=== PATIENT | female | born 1935 | race Caucasian/White ===

== ENCOUNTER 2018-09-10 10:56 | Inpatient (IN) | payer MEDICARE ==
[2018-09-10] MEDS ORDERED: Morphine 2 MG/ML Syringe IVPUSH ONE (11:02)
--- NOTE | 2018-09-10 11:24 | EDM.PDOC ---
ED HPI GENERAL MEDICAL PROBLEM - General Chief Complaint: General Stated Complaint: PAIN IN SHOULDER AND LEG WEAKNESS Time Seen by Provider: 09/10/18 10:59 Source of Information: Reports: Patient History Limitations: Reports: Other (Poor historian) - History of Present Illness INITIAL COMMENTS - FREE TEXT/NARRATIVE: HISTORY AND PHYSICAL: History of present illness: Patient is an 83-year-old female who presents to the emergency room today by ambulance with concerns of generalized weakness and right shoulder pain. Patient states that one week ago she had fallen and hit her head in [place]. She states she was hospitalized and sutured up and had a "brain bleed ". She is unsure of what was done for her treatment in the hospital stay. She has not had any falls since that visit. She states she does live at home currently but soon is going to be going to assisted living. She states she is able to somewhat walk. She states that she feels as if she is "weak" but is still able to move her legs without difficulty. Furthermore, she states that since her fall a week ago she has had severe right arm pain. She states that while in [place] they did imaging of it and states it was "not broken." Patient states that her legs feel "weak" but she is not able to quantify or explain this any further. She denies any injuries to her legs. Patient states she has been eating and drinking appropriately. Patient denies chest pain, shortness of breath, difficulties breathing, cough, nasal congestion, sinus pain, diarrhea, constipation, abdominal pain, or any other GI, , respiratory, or cardiovascular symptoms. She states she does have a history of chronic urinary tract infection that she is on chronic antibiotics for. Currently is taking Bactrim DS for UTI. Patient also has a history of hypothyroid, and hypertension. Review of systems: As per history of present illness and below otherwise all systems reviewed and negative. Past medical history: As per history of present illness and as reviewed below otherwise noncontributory. Surgical history: As per history of present illness and as reviewed below otherwise noncontributory. Social history: See social history for further information Family history: As per history of present illness and as reviewed below otherwise noncontributory. Physical exam: General: Patient is alert, oriented, and in no acute distress. She is lying comfortably on exam table. HEENT: There is a widespread bruise on the left side of face that is in various stages of healing. Normocephalic, pupils equal and reactive bilaterally, negative for conjunctival pallor or scleral icterus, mucous membranes moist, TMs normal bilaterally, throat clear, neck supple, nontender, trachea midline. No drooling or trismus noted. No meningeal signs. No hot potato voice noted. Lungs: Clear to auscultation, breath sounds equal bilaterally, chest nontender. Heart: S1S2, regular rate and rhythm without overt murmur Abdomen: Soft, nondistended, nontender. Negative for masses or hepatosplenomegaly. Negative for costovertebral tenderness. Pelvis: Stable nontender. Genitourinary: Deferred. Rectal: Deferred. Skin: See HEENT. Intact, warm, dry. No lesions or rashes noted. Extremities: She does have some bruising on her fingers in various stages. She does have her right arm and a homemade sling. She does have moderate pain to any movement of the right arm. Exam of the arm was limited due to pain. However , radial pulse was grossly intact. Patient did have full strength in hands/ extremities bilaterally. Negative for cords or calf pain. Neurovascular unremarkable. Neuro: Awake, alert, oriented. Cranial nerves II through XII unremarkable. Cerebellum unremarkable. Motor and sensory unremarkable throughout. Exam nonfocal. Notes: She does not meet criteria for stoke code. She does not have any unilateral weakness, slurred speech or deficits noted. Patient's white blood cell count is elevated at 17.51 with slight elevation in neutrophils. Blood cultures 2 were obtained. Patient's BUN is 19 and creatinine 1.4 which are slightly elevated today. Head CT shows no acute intracranial findings and mild generalized atrophy and small vessel ischemic changes. Chest x-ray shows no acute cardiopulmonary process. The daughter who is also her survey statistician is at the bedside and is concerned of the repeat labs that are being done. She states that multiple labs were done 2 weeks ago while in [facility] ([facility] and is frustrated that we are "not treating her urinary tract infection". Patient is currently on Bactrim for her UTI. She is adamant that the patient have imagining of her lumbar spine. She states that no imaging was done on the date of her fall 2 weeks ago. She believes that her weakness is related to lumbar injury as she does have chronic pain and lumbar fusion. [facility] was contacted, their medical records state that a head CT was done but no spine imaging. We'll obtain a lumbar spine x-ray. Shoulder shows no acute abnormalities, dislocation or fractures. There is mild generalized osteopenia and degenerative changes noted the humeral head is mildly high riding. She does states she has had multiple bilateral shoulder surgeries. Lumbar imaging shows extensive postop changes within the lumbar spine without acute osseous abnormality. Also shows notable osteopenic with mild motion being noted. On chest x-ray the ability to get a lateral view was inhibited due to patient's willingness to move arms. Due to patient's elevated white blood cell count, lack of physical ambulation, and the inability to get a lateral view will assess for admission. Oxygen has been applied due to O2 sats being 89-90% on RA. Dr. Manuel was consulted and will come evaluate the patient. Nemo Oro NP is here to evaluate the patient. Levaquin ordered at this time. She will admit for Observation. Patient and family members are aware and agreeable. Vital signs remain stable. Diagnostics: CBC, CMP, influenza, troponin, TSH, UA w/ culture, chest x-ray, head CT, shoulder x-ray, EKG, blood cultures x 2, Lumbar Spine Therapeutics: Morphine, Normal Saline, Levaquin IV Impression: Hypoxia Leukocytosis Decreased ADL Elevated BUN/Creatinine Plan: Observation admission Definitive disposition and diagnosis as appropriate pending reevaluation and review of above. right shoulder Pain Score (Numeric/FACES): 10 - Related Data Allergies Allergy/AdvReac Type Severity Reaction Status Date / Time ibuprofen [From Motrin] Allergy Cannot Verified 09/10/18 11:03 Remember NSAIDS (Non-Steroidal Allergy Cannot Verified 09/10/18 11:03 Anti-Inflamma Remember Home Meds: Home Meds Acetaminophen with Codeine [Acetaminophen-Cod #4] 1 tab PO Q4H PRN 09/10/18 [ History] Cyclobenzaprine [Flexeril] 1 tab PO TID PRN 09/10/18 [History] Disopyramide Phosphate [Norpace] 150 mg PO BID 09/10/18 [History] Gabapentin [Neurontin] 1 tab PO TID 09/10/18 [History] Levothyroxine [Levothroid] 137 mcg PO DAILY 09/10/18 [History] Sulfamethoxazole/Trimethoprim [Bactrim Ds Tablet] 1 tab PO BID 09/10/18 [History ] hydroCHLOROthiazide [Hydrochlorothiazide] 25 mg PO DAILY 09/10/18 [History] traZODone HCl [Trazodone HCl] 100 mg PO BEDTIME 09/10/18 [History] ED ROS GENERAL - Review of Systems Review Of Systems: ROS reveals no pertinent complaints other than HPI. ED EXAM, GENERAL - Physical Exam Exam: See Below (See dictation) Course - Vital Signs Last Recorded V/S: Last Vital Signs Temp 101.3 F H 09/10/18 13:06 Pulse 87 09/10/18 12:15 Resp 18 09/10/18 12:15 BP 166/64 H 09/10/18 12:15 Pulse Ox 93 L 09/10/18 12:15 - Orders/Labs/Meds Orders: Active Orders 24 hr Category Date Time Status Admission Status [Patient Status] [ADT] Stat ADT 09/10/18 13:59 Ordered EKG Documentation Completion [RC] AM Care 09/10/18 11:00 Active Chest 2V [CR] Stat Exams 09/10/18 13:07 Ordered CULTURE BLOOD [BC] Stat Lab 09/10/18 11:36 Ordered CULTURE BLOOD [BC] Stat Lab 09/10/18 11:36 Ordered Levofloxacin/Dextrose 5%-Water [Levaquin in D5W 750 MG/ Med 09/10/18 13:34 Active 150 ML] 750 mg Premix Bag 1 bag IV ONETIME Sodium Chloride 0.9% [Normal Saline] 1,000 ml Med 09/10/18 11:15 Active IV ASDIRECTED Blood Culture x2 Reflex Set [OM.PC] Stat Oth 09/10/18 11:36 Ordered Medication Orders Sodium Chloride (Normal Saline) 1,000 mls @ 100 mls/hr IV ASDIRECTED ALCIDES Last Admin: 09/10/18 11:30 Dose: 100 mls/hr Levofloxacin/Dextrose 750 mg/ (Premix) 150 mls @ 100 mls/hr IV ONETIME ONE Stop: 09/10/18 15:03 Labs: Laboratory Tests 09/10/18 09/10/18 09/10/18 Range/Units 11:14 11:14 11:14 WBC 17.51 H (4.0-11.0) K/uL RBC 4.59 (4.30-5.90) M/uL Hgb 14.1 (12.0-16.0) g/dL Hct 40.3 (36.0-46.0) % MCV 87.8 (80.0-98.0) fL MCH 30.7 (27.0-32.0) pg MCHC 35.0 (31.0-37.0) g/dL RDW Std Deviation 44.8 (28.0-62.0) fl RDW Coeff of [place] 14 (11.0-15.0) % Plt Count 282 (150-400) K/uL MPV 9.50 (7.40-12.00) fL Neut % (Auto) 83.3 H (48.0-80.0) % Lymph % (Auto) 7.0 L (16.0-40.0) % [place] % (Auto) 9.2 (0.0-15.0) % Eos % (Auto) 0.3 (0.0-7.0) % Baso % (Auto) 0.2 (0.0-1.5) % Neut # (Auto) 14.6 H (1.4-5.7) K/uL Lymph # (Auto) 1.2 (0.6-2.4) K/uL [place] # (Auto) 1.6 H (0.0-0.8) K/uL Eos # (Auto) 0.1 (0.0-0.7) K/uL Baso # (Auto) 0.0 (0.0-0.1) K/uL Nucleated RBC % 0.0 /100WBC Nucleated RBCs # 0 K/uL Sodium 133 L (136-145) mmol/L Potassium 4.0 (3.5-5.1) mmol/L Chloride 98 (98-107) mmol/L Carbon Dioxide 26.1 (21.0-32.0) mmol/L BUN 19 H (7.0-18.0) mg/dL Creatinine 1.4 H (0.6-1.0) mg/dL Est Cr Clr Drug Dosing 27.21 mL/min Estimated GFR (MDRD) 36.1 ml/min Glucose 97 (74-106) mg/dL Calcium 9.7 (8.5-10.1) mg/dL Total Bilirubin 0.4 (0.2-1.0) mg/dL AST 26 (15-37) IU/L ALT 31 (14-63) IU/L Alkaline Phosphatase 99 (46-116) U/L Troponin I < 0.050 (0.000-0.056) ng/mL Total Protein 7.4 (6.4-8.2) g/dL Albumin 3.2 L (3.4-5.0) g/dL Globulin 4.2 H (2.6-4.0) g/dL Albumin/Globulin Ratio 0.8 L (0.9-1.6) TSH 3rd Generation 2.06 (0.36-3.74) uIU/mL Urine Color Urine Appearance Urine pH (5.0-8.0) Ur Specific [place] (1.001-1.035) Urine Protein (NEGATIVE) mg/dL Urine Glucose (UA) (NEGATIVE) mg/dL Urine Ketones (NEGATIVE) mg/dL Urine Occult Blood (NEGATIVE) Urine Nitrite (NEGATIVE) Urine Bilirubin (NEGATIVE) Urine Urobilinogen (<2.0) EU/dL Ur Leukocyte Esterase (NEGATIVE) 09/10/18 Range/Units 12:45 WBC (4.0-11.0) K/uL RBC (4.30-5.90) M/uL Hgb (12.0-16.0) g/dL Hct (36.0-46.0) % MCV (80.0-98.0) fL MCH (27.0-32.0) pg MCHC (31.0-37.0) g/dL RDW Std Deviation (28.0-62.0) fl RDW Coeff of [place] (11.0-15.0) % Plt Count (150-400) K/uL MPV (7.40-12.00) fL Neut % (Auto) (48.0-80.0) % Lymph % (Auto) (16.0-40.0) % [place] % (Auto) (0.0-15.0) % Eos % (Auto) (0.0-7.0) % Baso % (Auto) (0.0-1.5) % Neut # (Auto) (1.4-5.7) K/uL Lymph # (Auto) (0.6-2.4) K/uL [place] # (Auto) (0.0-0.8) K/uL Eos # (Auto) (0.0-0.7) K/uL Baso # (Auto) (0.0-0.1) K/uL Nucleated RBC % /100WBC Nucleated RBCs # K/uL Sodium (136-145) mmol/L Potassium (3.5-5.1) mmol/L Chloride (98-107) mmol/L Carbon Dioxide (21.0-32.0) mmol/L BUN (7.0-18.0) mg/dL Creatinine (0.6-1.0) mg/dL Est Cr Clr Drug Dosing mL/min Estimated GFR (MDRD) ml/min Glucose (74-106) mg/dL Calcium (8.5-10.1) mg/dL Total Bilirubin (0.2-1.0) mg/dL AST (15-37) IU/L ALT (14-63) IU/L Alkaline Phosphatase (46-116) U/L Troponin I (0.000-0.056) ng/mL Total Protein (6.4-8.2) g/dL Albumin (3.4-5.0) g/dL Globulin (2.6-4.0) g/dL Albumin/Globulin Ratio (0.9-1.6) TSH 3rd Generation (0.36-3.74) uIU/mL Urine Color YELLOW Urine Appearance CLEAR Urine pH 6.0 (5.0-8.0) Ur Specific [place] 1.025 (1.001-1.035) Urine Protein NEGATIVE (NEGATIVE) mg/dL Urine Glucose (UA) NEGATIVE (NEGATIVE) mg/dL Urine Ketones TRACE H (NEGATIVE) mg/dL Urine Occult Blood NEGATIVE (NEGATIVE) Urine Nitrite NEGATIVE (NEGATIVE) Urine Bilirubin NEGATIVE (NEGATIVE) Urine Urobilinogen 0.2 (<2.0) EU/dL Ur Leukocyte Esterase NEGATIVE (NEGATIVE) Meds: Medications Generic Name Dose Route Start Last Admin Trade Name Freq PRN Reason Stop Dose Admin Sodium Chloride 1,000 mls @ 100 mls/hr 09/10/18 11:15 09/10/18 11:30 Normal Saline IV 100 mls/hr ASDIRECTED ALCIDES Administration Levofloxacin/Dextrose 750 mg/ 150 mls @ 100 mls/hr 09/10/18 13:34 Premix IV 09/10/18 15:03 ONETIME ONE Discontinued Medications Generic Name Dose Route Start Last Admin Trade Name Vanessa PRN Reason Stop Dose Admin Acetaminophen 650 mg 09/10/18 12:48 09/10/18 13:06 Tylenol PO 09/10/18 12:49 650 mg NOW ONE Administration Morphine Sulfate 2 mg 09/10/18 11:02 09/10/18 11:30 Morphine IVPUSH 09/10/18 11:03 2 mg ONETIME ONE Administration Departure - Departure Time of Disposition: 14:00 Disposition: Refer to Observation Clinical Impression: Hypoxia, Leukocytosis, unspecified, Decreased activities of daily living (ADL) - Discharge Information Referrals: PCP,Unknown [Primary Care Provider] - Forms: ED Department Discharge - My Orders Last 24 Hours: My Active Orders 09/10/18 11:00 EKG Documentation Completion [RC] AM 09/10/18 11:15 Sodium Chloride 0.9% [Normal Saline] 1,000 ml IV ASDIRECTED 09/10/18 11:36 CULTURE BLOOD [BC] Stat CULTURE BLOOD [BC] Stat Blood Culture x2 Reflex Set [OM.PC] Stat 09/10/18 13:07 Chest 2V [CR] Stat 09/10/18 13:34 Levofloxacin/Dextrose 5%-Water [Levaquin in D5W 750 MG/150 ML] 750 mg Premix Bag 1 bag IV ONETIME 09/10/18 13:59 Admission Status [Patient Status] [ADT] Stat - Assessment/Plan Last 24 Hours: My Active Orders 09/10/18 11:00 EKG Documentation Completion [RC] AM 09/10/18 11:15 Sodium Chloride 0.9% [Normal Saline] 1,000 ml IV ASDIRECTED 09/10/18 11:36 CULTURE BLOOD [BC] Stat CULTURE BLOOD [BC] Stat Blood Culture x2 Reflex Set [OM.PC] Stat 09/10/18 13:07 Chest 2V [CR] Stat 09/10/18 13:34 Levofloxacin/Dextrose 5%-Water [Levaquin in D5W 750 MG/150 ML] 750 mg Premix Bag 1 bag IV ONETIME 09/10/18 13:59 Admission Status [Patient Status] [ADT] Stat
[2018-09-10] MEDS: Sodium Chloride 0.9% 1,000 ML IV SCH ×2 (11:30→20:47)
[2018-09-10 11:52] LABS: CHLORIDE,CL 98 mmol/L (98-107); SODIUM,NA 133 mmol/L (136-145)
--- NOTE | 2018-09-10 12:12 | CT ---
EXAMINATION: Non contrast CT head. Coronal and sagittal reformats. HISTORY: Fall FINDINGS: No evidence of intra or extra axial hemorrhage, mass, midline shift, hydrocephalus or edema. Periventricular and subcortical white matter hypodensities are noted. No hypoattenuation changes in the major vascular territories to suggest acute infarct. No abnormal intracranial calcifications are detected. No evidence of substantial vascular calcifications. There is opacification of a few ethmoid air cells. Overt and globes are symmetric. Pituitary fossa appears unremarkable. Calvarium is intact. No evidence of skull fracture. IMPRESSION: 1. No acute intracranial findings. 2. Mild generalized atrophy and small vessel ischemic changes.
--- NOTE | 2018-09-10 12:23 | CR ---
EXAMINATION: Portable chest radiograph. HISTORY: Shortness of breath. FINDINGS: The trachea is midline. The heart is borderline in size. The cardiomediastinal silhouette is within normal limits. No pulmonary infiltrates, effusions or pneumothorax. Mild elevation of the right hemidiaphragm. Degenerative changes noted within the shoulders bilaterally, left greater than right. Generalized osteopenia. Bilateral fusion hardware noted within the cervical and thoracolumbar region. IMPRESSION: No acute cardiopulmonary process.
--- NOTE | 2018-09-10 12:26 | CR ---
EXAMINATION: Right shoulder HISTORY: Pain COMPARISON: None TECHNIQUE: 2 views FINDINGS/IMPRESSION: There is no acute osseous abnormality, dislocation, or fracture. Mild generalized osteopenia with subcortical sclerosis and degenerative changes noted within the right shoulder. Humeral head is mildly high riding suggesting a rotator cuff arthropathy.
[2018-09-10] MEDS ORDERED: Acetaminophen 325 MG Tab PO ONE (12:48)
--- NOTE | 2018-09-10 13:22 | CR ---
EXAMINATION: Lumbar spine HISTORY: Pain COMPARISON: None TECHNIQUE: AP and lateral views FINDINGS: There is mild motion artifact noted. Overall the osseous structures are notable osteopenic. An evaluation of the individual vertebral bodies is limited. Extensive posterior fusion hardware extending throughout the lumbar spine into the sacrum. No definite acute osseous abnormality. SI joints are symmetric. IMPRESSION: 1. Extensive postoperative changes throughout the lumbar spine without a definite acute osseous abnormality. 2. However the osseous structures are notably osteopenic and mild motion is noted.
[2018-09-10] MEDS ORDERED: Levofloxacin/Dextrose 5%-Water 750 MG in Premix Bag 1 BAG IV ONE (13:34)
--- NOTE | 2018-09-10 14:34 | PCM.HP ---
H&P History of Present Illness - General Date of Service: 09/10/18 Admit Problem/Dx: Admission Diagnosis/Problem Admission Diagnosis/Problem Hypoxia Source of Information: Patient History Limitations: Reports: No Limitations - History of Present Illness Initial Comments - Free Text/Narative: This 83 year old female with pmh of HTN and recent falls presented to the ED via EMS due to weakness and generalized malaise. Yael does little talk, her daughter helps with most of history and ROS. Her daughter reports she has been very weak since she was discharged home from a [facility] the beginning of the week after she fell and had a "brain bleed". She reports she had a thorough workup there regarding falls and possible syncope and they couldn 't find anything. She reports she had one day of therapy and then sent home. At home she has not been up much to ambulate, to the bathroom and back. Yael reports she just doesn't feel well. Fever was noted in the ED. She has been treated with Bactrim for recent UTI and is currently still taking it. She denies cough or chest pain. No headache or neck pain. Reports R shoulder pain after her fall, she reports this has hurt since her fall and the hospital report no fractures. She reports constipation and no bowel movement since she came home. She reports eating and drinking ok but her daughter reports she hasn' t been drinking well enough. Denies urinary symptoms, gets UTIs frequently. In the ED leukocytosis noted at 17,510, BUN 19, Cr 1.4. UA negative and influenza negative. CXR obtained and negative as well. She was reports at 89-90 % on arrival to the ED. Denies oxygen use at home. Should Xrays negative, but did show high riding humeral head, possible rotator cuff arthropathy. Head CT obtained and negative as well. She will be admitted observation for hypoxia, leukocytosis, dehydration and TED. Daughter reports she feels her mother is slightly confused as well, but this comes and goes recently. Will obtain records from [place] to evaluate work up there. right shoulder Pain Score (Numeric/FACES): 10 - Related Data Allergies/Adverse Reactions: Allergies Allergy/AdvReac Type Severity Reaction Status Date / Time ibuprofen [From Motrin] Allergy Cannot Verified 09/10/18 11:03 Remember NSAIDS (Non-Steroidal Allergy Cannot Verified 09/10/18 11:03 Anti-Inflamma Remember Home Medications: Home Meds Acetaminophen with Codeine [Acetaminophen-Cod #4] 1 tab PO Q4H PRN 09/10/18 [ History] Cyclobenzaprine [Flexeril] 1 tab PO TID PRN 09/10/18 [History] Disopyramide Phosphate [Norpace] 150 mg PO BID 09/10/18 [History] Gabapentin [Neurontin] 1 tab PO TID 09/10/18 [History] Levothyroxine [Levothroid] 137 mcg PO DAILY 09/10/18 [History] Sulfamethoxazole/Trimethoprim [Bactrim Ds Tablet] 1 tab PO BID 09/10/18 [History ] hydroCHLOROthiazide [Hydrochlorothiazide] 25 mg PO DAILY 09/10/18 [History] traZODone HCl [Trazodone HCl] 100 mg PO BEDTIME 09/10/18 [History] Past Medical History Cardiovascular History: Reports: Arrhythmia, Hypertension. Denies: Afib, Blood Clots/VTE/DVT Respiratory History: Reports: None. Denies: COPD Gastrointestinal History: Reports: None Genitourinary History: Reports: UTI, Recurrent Musculoskeletal History: Reports: Back Pain, Chronic, Fibromyalgia, Other (See Below) Other Musculoskeletal History: Weakness Neurological History: Reports: Other (See Below) Other Neuro History: head bleed 09/02/18 Endocrine/Metabolic History: Reports: Hypothyroidism Oncologic (Cancer) History: Reports: Other (See Below) Other Oncologic History: Kidney - Infectious Disease History Infectious Disease History: Reports: Chicken Pox, Measles, Mumps - Past Surgical History GI Surgical History: Reports: Appendectomy Female Surgical History: Reports: Hysterectomy Neurological Surgical History: Reports: Lumbar Spine, Thoracic Spine Musculoskeletal Surgical History: Reports: Knee Replacement Social & Family History - Tobacco Use Smoking Status *Q: Never Smoker - Recreational Drug Use Recreational Drug Use: No - Living Situation & Occupation Living situation: Reports: with Family Occupation: Retired H&P Review of Systems - Review of Systems: Review Of Systems: See Below General: Reports: Fever, Chills, Malaise, Weakness (generalized) HEENT: Reports: No Symptoms. Denies: Ear Pain, Headaches, Sore Throat, Visual Changes Pulmonary: Reports: No Symptoms. Denies: Shortness of Breath, Pleuritic Chest Pain, Cough, Sputum Cardiovascular: Reports: No Symptoms. Denies: Chest Pain, Edema, Lightheadedness, Syncope Gastrointestinal: Reports: Constipation. Denies: Abdominal Pain, Black Stool, Bloody Stool, Nausea, Vomiting Genitourinary: Reports: No Symptoms. Denies: Dysuria, Frequency, Incontinence, Retention Musculoskeletal: Reports: Back Pain (chronic, takes Hydrocodone) Skin: Reports: Bruising (L side of face and R hand). Denies: Rash, Erythema, Wound Psychiatric: Reports: No Symptoms Neurological: Reports: Confusion (per daughter, intermittently) Exam - Exam Exam: See Below - Vital Signs Vital Signs: Last Vital Signs Temp 101.3 F H 09/10/18 13:06 Pulse 87 09/10/18 12:15 Resp 18 09/10/18 12:15 BP 166/64 H 09/10/18 12:15 Pulse Ox 93 L 09/10/18 12:15 Weight: 68.039 kg - Exam Quality Assessment: Supplemental Oxygen General: Alert, Cooperative. No: Oriented (to self and location) HEENT: Conjunctiva Clear. No: Mucosa Moist & [place] (dry cracker lips) Neck: Supple, Trachea Midline Lungs: Clear to Auscultation, Normal Respiratory Effort. No: Decreased Breath Sounds, Crackles, Wheezing Cardiovascular: Regular Rate, Regular Rhythm, Normal S1, Normal S2. No: Tachycardia, Systolic Murmur GI/Abdominal Exam: Normal Bowel Sounds, Soft, Non-Tender, No Mass Back Exam: Normal Inspection, Full Range of Motion Extremities: No: Normal Range of Motion (will not allow movement of R shoulder due to pain. Tender to humeral head and near clavicle. Some swelling noted, no erythema or warm noted to this region.) Skin: Warm, Dry, Intact Neuro Extensive - Mental Status: Alert, Disorientation to Time Neuro Extensive - Motor, Sensory, Reflexes: CN II-XII Intact Psychiatric: Alert, Normal Affect, Normal Mood - Patient Data Lab Results Last 24 hrs: Laboratory Results - last 24 hr 09/10/18 09/10/18 09/10/18 Range/Units 11:14 11:14 11:14 WBC 17.51 H (4.0-11.0) K/uL RBC 4.59 (4.30-5.90) M/uL Hgb 14.1 (12.0-16.0) g/dL Hct 40.3 (36.0-46.0) % MCV 87.8 (80.0-98.0) fL MCH 30.7 (27.0-32.0) pg MCHC 35.0 (31.0-37.0) g/dL RDW Std Deviation 44.8 (28.0-62.0) fl RDW Coeff of [place] 14 (11.0-15.0) % Plt Count 282 (150-400) K/uL MPV 9.50 (7.40-12.00) fL Neut % (Auto) 83.3 H (48.0-80.0) % Lymph % (Auto) 7.0 L (16.0-40.0) % [place] % (Auto) 9.2 (0.0-15.0) % Eos % (Auto) 0.3 (0.0-7.0) % Baso % (Auto) 0.2 (0.0-1.5) % Neut # (Auto) 14.6 H (1.4-5.7) K/uL Lymph # (Auto) 1.2 (0.6-2.4) K/uL [place]le # (Auto) 1.6 H (0.0-0.8) K/uL Eos # (Auto) 0.1 (0.0-0.7) K/uL Baso # (Auto) 0.0 (0.0-0.1) K/uL Nucleated RBC % 0.0 /100WBC Nucleated RBCs # 0 K/uL Sodium 133 L (136-145) mmol/L Potassium 4.0 (3.5-5.1) mmol/L Chloride 98 (98-107) mmol/L Carbon Dioxide 26.1 (21.0-32.0) mmol/L BUN 19 H (7.0-18.0) mg/dL Creatinine 1.4 H (0.6-1.0) mg/dL Est Cr Clr Drug Dosing 27.21 mL/min Estimated GFR (MDRD) 36.1 ml/min Glucose 97 (74-106) mg/dL Calcium 9.7 (8.5-10.1) mg/dL Total Bilirubin 0.4 (0.2-1.0) mg/dL AST 26 (15-37) IU/L ALT 31 (14-63) IU/L Alkaline Phosphatase 99 (46-116) U/L Troponin I < 0.050 (0.000-0.056) ng/mL Total Protein 7.4 (6.4-8.2) g/dL Albumin 3.2 L (3.4-5.0) g/dL Globulin 4.2 H (2.6-4.0) g/dL Albumin/Globulin Ratio 0.8 L (0.9-1.6) TSH 3rd Generation 2.06 (0.36-3.74) uIU/mL Urine Color Urine Appearance Urine pH (5.0-8.0) Ur Specific [place] (1.001-1.035) Urine Protein (NEGATIVE) mg/dL Urine Glucose (UA) (NEGATIVE) mg/dL Urine Ketones (NEGATIVE) mg/dL Urine Occult Blood (NEGATIVE) Urine Nitrite (NEGATIVE) Urine Bilirubin (NEGATIVE) Urine Urobilinogen (<2.0) EU/dL Ur Leukocyte Esterase (NEGATIVE) 09/10/18 Range/Units 12:45 WBC (4.0-11.0) K/uL RBC (4.30-5.90) M/uL Hgb (12.0-16.0) g/dL Hct (36.0-46.0) % MCV (80.0-98.0) fL MCH (27.0-32.0) pg MCHC (31.0-37.0) g/dL RDW Std Deviation (28.0-62.0) fl RDW Coeff of [place] (11.0-15.0) % Plt Count (150-400) K/uL MPV (7.40-12.00) fL Neut % (Auto) (48.0-80.0) % Lymph % (Auto) (16.0-40.0) % Boyle % (Auto) (0.0-15.0) % Eos % (Auto) (0.0-7.0) % Baso % (Auto) (0.0-1.5) % Neut # (Auto) (1.4-5.7) K/uL Lymph # (Auto) (0.6-2.4) K/uL Boyle # (Auto) (0.0-0.8) K/uL Eos # (Auto) (0.0-0.7) K/uL Baso # (Auto) (0.0-0.1) K/uL Nucleated RBC % /100WBC Nucleated RBCs # K/uL Sodium (136-145) mmol/L Potassium (3.5-5.1) mmol/L Chloride (98-107) mmol/L Carbon Dioxide (21.0-32.0) mmol/L BUN (7.0-18.0) mg/dL Creatinine (0.6-1.0) mg/dL Est Cr Clr Drug Dosing mL/min Estimated GFR (MDRD) ml/min Glucose (74-106) mg/dL Calcium (8.5-10.1) mg/dL Total Bilirubin (0.2-1.0) mg/dL AST (15-37) IU/L ALT (14-63) IU/L Alkaline Phosphatase (46-116) U/L Troponin I (0.000-0.056) ng/mL Total Protein (6.4-8.2) g/dL Albumin (3.4-5.0) g/dL Globulin (2.6-4.0) g/dL Albumin/Globulin Ratio (0.9-1.6) TSH 3rd Generation (0.36-3.74) uIU/mL Urine Color YELLOW Urine Appearance CLEAR Urine pH 6.0 (5.0-8.0) Ur Specific [place] 1.025 (1.001-1.035) Urine Protein NEGATIVE (NEGATIVE) mg/dL Urine Glucose (UA) NEGATIVE (NEGATIVE) mg/dL Urine Ketones TRACE H (NEGATIVE) mg/dL Urine Occult Blood NEGATIVE (NEGATIVE) Urine Nitrite NEGATIVE (NEGATIVE) Urine Bilirubin NEGATIVE (NEGATIVE) Urine Urobilinogen 0.2 (<2.0) EU/dL Ur Leukocyte Esterase NEGATIVE (NEGATIVE) Result Diagrams: 09/10/18 11:14 09/10/18 11:14 Genaro Results Last 24 hrs: Microbiology 09/10/18 13:38 Anaerobic Blood Culture - Final Blood - Venous 09/10/18 11:30 Influenza Type A Antigen Screen - Final Nasopharyngeal Swab NEGATIVE INFLUENZA A VIRUS AG Influenza Type B Antigen Screen - Final NEGATIVE INFLUENZA B VIRUS AG - Problem List (1) Leukocytosis, unspecified SNOMED Code(s): 327314502, 750508040 ICD Code: D72.829 - ELEVATED WHITE BLOOD CELL COUNT, UNSPECIFIED Status: Acute Current Visit: Yes (2) Dehydration SNOMED Code(s): 55802523 ICD Code: E86.0 - DEHYDRATION Status: Acute Current Visit: Yes (3) TED (acute kidney injury) SNOMED Code(s): 24562923 ICD Code: N17.9 - ACUTE KIDNEY FAILURE, UNSPECIFIED Status: Acute Current Visit: Yes (4) Physical deconditioning SNOMED Code(s): 30407914760619 ICD Code: R53.81 - OTHER MALAISE Status: Acute Current Visit: Yes (5) Shoulder pain SNOMED Code(s): 56101336 ICD Code: M25.519 - PAIN IN UNSPECIFIED SHOULDER Status: Acute Current Visit: Yes Qualifiers: Chronicity: acute Laterality: right Qualified Code(s): M25.511 - Pain in right shoulder (6) Decreased activities of daily living (ADL) SNOMED Code(s): 539967844 ICD Code: R68.89 - OTHER GENERAL SYMPTOMS AND SIGNS Status: Acute Current Visit: Yes (7) Hypoxia SNOMED Code(s): 292954629 ICD Code: R09.02 - HYPOXEMIA Status: Acute Current Visit: Yes (8) HTN (hypertension) SNOMED Code(s): 11990087 ICD Code: I10 - ESSENTIAL (PRIMARY) HYPERTENSION Status: Chronic Current Visit: Yes Qualifiers: Hypertension type: essential hypertension Qualified Code(s): I10 - Essential (primary) hypertension Problem List Initiated/Reviewed/Updated: Yes Orders Last 24hrs: Active Orders 24 hr Category Date Time Status Admission Status [Patient Status] [ADT] Stat ADT 09/10/18 13:59 Active EKG Documentation Completion [RC] AM Care 09/10/18 11:00 Active Chest 2V [CR] Stat Exams 09/10/18 13:07 Ordered CULTURE BLOOD [BC] Stat Lab 09/10/18 11:36 Ordered CULTURE BLOOD [BC] Stat Lab 09/10/18 13:38 Results Levofloxacin/Dextrose 5%-Water [Levaquin in D5W 750 MG/ Med 09/10/18 13:34 Active 150 ML] 750 mg Premix Bag 1 bag IV ONETIME Sodium Chloride 0.9% [Normal Saline] 1,000 ml Med 09/10/18 11:15 Active IV ASDIRECTED Blood Culture x2 Reflex Set [OM.PC] Stat Oth 09/10/18 11:36 Ordered Medication Orders Sodium Chloride (Normal Saline) 1,000 mls @ 100 mls/hr IV ASDIRECTED [facility] Last Admin: 09/10/18 11:30 Dose: 100 mls/hr Levofloxacin/Dextrose 750 mg/ (Premix) 150 mls @ 100 mls/hr IV ONETIME ONE Stop: 09/10/18 15:03 Assessment/Plan Comment:: This 83 year old female admitted with hypoxia, leukocytosis and dehydration 1. Leukocytosis: May be related to dehydration. But will stop Bactrim and cover with Levaquin for possible PNA due to hypoxia, though CXR negative. Will monitor. 2. Dehydration: Will gentle give fluids and monitor renal function. has some TED , will adjust Gabapentin due to this and monitor. 3. Physical deconditioning: consult PT/OT to evaluate and treat. OT to evaluate ADLs as well as shoulder pain. No fractures noted on Xray. Splint to R arm for comfort. 4. HTN: Stable. Continue home meds. VTE prophylaxis: SCDS for now due to recent brain bleed. Will have nursing obtain records from [facility]. Dispo: 2-3 days.
[2018-09-10] MEDS ORDERED: Acetaminophen 325 MG Tab PO PRN (15:51)
[2018-09-10] MEDS ORDERED: Ondansetron 4 MG/2 ML SDV IVPUSH PRN (15:51)
[2018-09-10] MEDS ORDERED: Bisacodyl 10 MG Supp RECTAL PRN (17:31)
[2018-09-10] MEDS ORDERED: DISOPYRAMIDE PHOSPHATE 150 MG PO SCH (21:00)
[2018-09-10] MEDS: traZODone 50 MG Tab PO SCH (22:15)
[2018-09-11 05:33] LABS: CHLORIDE,CL 97 mmol/L (98-107); SODIUM,NA 131 mmol/L (136-145)
[2018-09-11] MEDS: Levothyroxine 112 MCG Tab PO SCH (06:48)
[2018-09-11] MEDS: Levothyroxine 25 MCG Tab PO SCH (06:49)
[2018-09-11] MEDS: Sodium Chloride 0.9% 1,000 ML IV SCH ×2 (06:50→19:05)
--- NOTE | 2018-09-11 08:24 | PCM.PN ---
- General Info Date of Service: 09/11/18 Admission Dx/Problem (Free Text): Admission Diagnosis/Problem Admission Diagnosis/Problem Hypoxia Subjective Update: Feeling a little better this morning, shoulder still hurts. No chest pain or SOB. More alert this morning. Functional Status: Reports: Pain Controlled, Tolerating Diet, Ambulating, Urinating - Review of Systems General: Reports: Weakness (generalized) HEENT: Reports: No Symptoms. Denies: Headaches, Sore Throat Pulmonary: Reports: No Symptoms Cardiovascular: Reports: No Symptoms. Denies: Chest Pain, Edema Gastrointestinal: Reports: No Symptoms. Denies: Abdominal Pain, Nausea, Vomiting Genitourinary: Reports: No Symptoms Musculoskeletal: Reports: No Symptoms Skin: Reports: No Symptoms Neurological: Reports: No Symptoms Psychiatric: Reports: No Symptoms - Patient Data Vitals - Most Recent: Last Vital Signs Temp 98.2 F 09/11/18 08:00 Pulse 88 09/11/18 08:00 Resp 16 09/11/18 08:00 BP 147/75 H 09/11/18 08:00 Pulse Ox 90 L 09/11/18 08:00 Weight - Most Recent: 68.039 kg I&O - Last 24 Hours: Intake & Output 09/10/18 09/11/18 09/11/18 22:59 06:59 14:59 Intake Total 999 150 Output Total 0 420 Balance 999 -270 Lab Results Last 24 Hours: Laboratory Results - last 24 hr 09/10/18 09/10/18 09/10/18 Range/Units 11:14 11:14 11:14 WBC 17.51 H (4.0-11.0) K/uL RBC 4.59 (4.30-5.90) M/uL Hgb 14.1 (12.0-16.0) g/dL Hct 40.3 (36.0-46.0) % MCV 87.8 (80.0-98.0) fL MCH 30.7 (27.0-32.0) pg MCHC 35.0 (31.0-37.0) g/dL RDW Std Deviation 44.8 (28.0-62.0) fl RDW Coeff of [place]ivid[place] 14 (11.0-15.0) % Plt Count 282 (150-400) K/uL MPV 9.50 (7.40-12.00) fL Neut % (Auto) 83.3 H (48.0-80.0) % Lymph % (Auto) 7.0 L (16.0-40.0) % [place] % (Auto) 9.2 (0.0-15.0) % Eos % (Auto) 0.3 (0.0-7.0) % Baso % (Auto) 0.2 (0.0-1.5) % Neut # (Auto) 14.6 H (1.4-5.7) K/uL Lymph # (Auto) 1.2 (0.6-2.4) K/uL [place] # (Auto) 1.6 H (0.0-0.8) K/uL Eos # (Auto) 0.1 (0.0-0.7) K/uL Baso # (Auto) 0.0 (0.0-0.1) K/uL Nucleated RBC % 0.0 /100WBC Nucleated RBCs # 0 K/uL Sodium 133 L (136-145) mmol/L Potassium 4.0 (3.5-5.1) mmol/L Chloride 98 (98-107) mmol/L Carbon Dioxide 26.1 (21.0-32.0) mmol/L BUN 19 H (7.0-18.0) mg/dL Creatinine 1.4 H (0.6-1.0) mg/dL Est Cr Clr Drug Dosing 27.21 mL/min Estimated GFR (MDRD) 36.1 ml/min Glucose 97 (74-106) mg/dL Calcium 9.7 (8.5-10.1) mg/dL Total Bilirubin 0.4 (0.2-1.0) mg/dL AST 26 (15-37) IU/L ALT 31 (14-63) IU/L Alkaline Phosphatase 99 (46-116) U/L Troponin I < 0.050 (0.000-0.056) ng/mL Total Protein 7.4 (6.4-8.2) g/dL Albumin 3.2 L (3.4-5.0) g/dL Globulin 4.2 H (2.6-4.0) g/dL Albumin/Globulin Ratio 0.8 L (0.9-1.6) TSH 3rd Generation 2.06 (0.36-3.74) uIU/mL Urine Color Urine Appearance Urine pH (5.0-8.0) Ur Specific [place] (1.001-1.035) Urine Protein (NEGATIVE) mg/dL Urine Glucose (UA) (NEGATIVE) mg/dL Urine Ketones (NEGATIVE) mg/dL Urine Occult Blood (NEGATIVE) Urine Nitrite (NEGATIVE) Urine Bilirubin (NEGATIVE) Urine Urobilinogen (<2.0) EU/dL Ur Leukocyte Esterase (NEGATIVE) 09/10/18 09/11/18 09/11/18 Range/Units 12:45 04:40 04:40 WBC 13.69 H (4.0-11.0) K/uL RBC 4.33 (4.30-5.90) M/uL Hgb 12.8 (12.0-16.0) g/dL Hct 37.8 (36.0-46.0) % MCV 87.3 (80.0-98.0) fL MCH 29.6 (27.0-32.0) pg MCHC 33.9 (31.0-37.0) g/dL RDW Std Deviation 44.2 (28.0-62.0) fl RDW Coeff of [place] 14 (11.0-15.0) % Plt Count 242 (150-400) K/uL MPV 9.80 (7.40-12.00) fL Neut % (Auto) 77.9 (48.0-80.0) % Lymph % (Auto) 10.4 L (16.0-40.0) % [place] % (Auto) 11.4 (0.0-15.0) % Eos % (Auto) 0.2 (0.0-7.0) % Baso % (Auto) 0.1 (0.0-1.5) % Neut # (Auto) 10.7 H (1.4-5.7) K/uL Lymph # (Auto) 1.4 (0.6-2.4) K/uL [place] # (Auto) 1.6 H (0.0-0.8) K/uL Eos # (Auto) 0.0 (0.0-0.7) K/uL Baso # (Auto) 0.0 (0.0-0.1) K/uL Nucleated RBC % 0.0 /100WBC Nucleated RBCs # 0 K/uL Sodium 131 L (136-145) mmol/L Potassium 3.3 L (3.5-5.1) mmol/L Chloride 97 L (98-107) mmol/L Carbon Dioxide 26.2 (21.0-32.0) mmol/L BUN 13 (7.0-18.0) mg/dL Creatinine 0.9 (0.6-1.0) mg/dL Est Cr Clr Drug Dosing 35.21 mL/min Estimated GFR (MDRD) > 60.0 ml/min Glucose 92 (74-106) mg/dL Calcium 9.1 (8.5-10.1) mg/dL Total Bilirubin (0.2-1.0) mg/dL AST (15-37) IU/L ALT (14-63) IU/L Alkaline Phosphatase (46-116) U/L Troponin I (0.000-0.056) ng/mL Total Protein (6.4-8.2) g/dL Albumin (3.4-5.0) g/dL Globulin (2.6-4.0) g/dL Albumin/Globulin Ratio (0.9-1.6) TSH 3rd Generation (0.36-3.74) uIU/mL Urine Color YELLOW Urine Appearance CLEAR Urine pH 6.0 (5.0-8.0) Ur Specific [place] 1.025 (1.001-1.035) Urine Protein NEGATIVE (NEGATIVE) mg/dL Urine Glucose (UA) NEGATIVE (NEGATIVE) mg/dL Urine Ketones TRACE H (NEGATIVE) mg/dL Urine Occult Blood NEGATIVE (NEGATIVE) Urine Nitrite NEGATIVE (NEGATIVE) Urine Bilirubin NEGATIVE (NEGATIVE) Urine Urobilinogen 0.2 (<2.0) EU/dL Ur Leukocyte Esterase NEGATIVE (NEGATIVE) Genaro Results Last 24 Hours: Microbiology 09/10/18 14:30 Anaerobic Blood Culture - Final Blood - Venous - Lab Draw 09/10/18 13:38 Anaerobic Blood Culture - Final Blood - Venous 09/10/18 11:30 Influenza Type A Antigen Screen - Final Nasopharyngeal Swab NEGATIVE INFLUENZA A VIRUS AG Influenza Type B Antigen Screen - Final NEGATIVE INFLUENZA B VIRUS AG Med Orders - Current: Current Medications Acetaminophen (Tylenol) 650 mg PO Q4H PRN PRN Reason: Pain Acetaminophen/Codeine Phosphate (Tylenol With Codeine No.3 300mg/30mg) 1 tab PO Q4H PRN PRN Reason: Pain Bisacodyl (Dulcolax) 10 mg RECTAL DAILY PRN PRN Reason: Constipation Last Admin: 09/10/18 17:57 Dose: 10 mg Gabapentin (Neurontin) 600 mg PO DAILY [facility] Sodium Chloride (Normal Saline) 1,000 mls @ 100 mls/hr IV ASDIRECTED [facility] Last Admin: 09/11/18 06:50 Dose: 100 mls/hr Levothyroxine Sodium (Levothyroxine) 112 mcg PO ACBREAKFAST [facility] Last Admin: 09/11/18 06:48 Dose: 112 mcg Levothyroxine Sodium (Levothyroxine) 25 mcg PO ACBREAKFAST [facility] Last Admin: 09/11/18 06:49 Dose: 25 mcg Trazodone HCl (Trazodone) 100 mg PO BEDTIME [facility] Last Admin: 09/10/18 22:15 Dose: 100 mg Discontinued Medications Acetaminophen (Tylenol) 650 mg PO NOW ONE Stop: 09/10/18 12:49 Last Admin: 09/10/18 13:06 Dose: 650 mg Levofloxacin/Dextrose 750 mg/ (Premix) 150 mls @ 100 mls/hr IV ONETIME ONE Stop: 09/10/18 15:03 Last Admin: 09/10/18 14:38 Dose: 100 mls/hr Levofloxacin/Dextrose 750 mg/ (Premix) 150 mls @ 100 mls/hr IV Q48H [facility] Morphine Sulfate (Morphine) 2 mg IVPUSH ONETIME ONE Stop: 09/10/18 11:03 Last Admin: 09/10/18 11:30 Dose: 2 mg Ondansetron HCl (Zofran) 4 mg IVPUSH Q4H PRN PRN Reason: Nausea Disopyramide Phosphate [Norpace] 150 Mg 1 each PO BID [facility] Last Admin: 09/10/18 22:15 Dose: Not Given - Exam General: Alert, Oriented, Cooperative, No Acute Distress Neck: Supple Lungs: Clear to Auscultation, Normal Respiratory Effort Cardiovascular: Regular Rate, Regular Rhythm GI/Abdominal Exam: Normal Bowel Sounds, Soft, Non-Tender Extremities: No Pedal Edema. No: Normal Range of Motion (R shoulder continues to have swelling and very limited movement.) Skin: Ecchymosis (bruising to L sided of face, healing. ) Neurological: No New Focal Deficit Psy/Mental Status: Alert, Normal Affect, Normal Mood - Problem List & Annotations (1) Leukocytosis, unspecified SNOMED Code(s): 154607370, 125534606 Code(s): D72.829 - ELEVATED WHITE BLOOD CELL COUNT, UNSPECIFIED Status: Acute Current Visit: Yes (2) Dehydration SNOMED Code(s): 44944568 Code(s): E86.0 - DEHYDRATION Status: Acute Current Visit: Yes (3) TED (acute kidney injury) SNOMED Code(s): 10565924 Code(s): N17.9 - ACUTE KIDNEY FAILURE, UNSPECIFIED Status: Acute Current Visit: Yes (4) Physical deconditioning SNOMED Code(s): 34772791286613 Code(s): R53.81 - OTHER MALAISE Status: Acute Current Visit: Yes (5) Shoulder pain SNOMED Code(s): 27574554 Code(s): M25.519 - PAIN IN UNSPECIFIED SHOULDER Status: Acute Current Visit: Yes Qualifiers: Chronicity: acute Laterality: right Qualified Code(s): M25.511 - Pain in right shoulder (6) Decreased activities of daily living (ADL) SNOMED Code(s): 597786783 Code(s): R68.89 - OTHER GENERAL SYMPTOMS AND SIGNS Status: Acute Current Visit: Yes (7) Hypoxia SNOMED Code(s): 599807095 Code(s): R09.02 - HYPOXEMIA Status: Acute Current Visit: Yes (8) HTN (hypertension) SNOMED Code(s): 03816315 Code(s): I10 - ESSENTIAL (PRIMARY) HYPERTENSION Status: Chronic Current Visit: Yes Qualifiers: Hypertension type: essential hypertension Qualified Code(s): I10 - Essential (primary) hypertension - Problem List Review Problem List Initiated/Reviewed/Updated: Yes - My Orders Last 24 Hours: My Active Orders 09/10/18 15:51 Oxygen Therapy [RC] PRN Up With Assistance [RC] ASDIRECTED VTE/DVT Education [RC] PER UNIT ROUTINE Vital Signs [RC] Q4H Acetaminophen [Tylenol] 650 mg PO Q4H PRN Resuscitation Status Routine 09/10/18 15:52 Intake and Output [RC] Q12H Sequential Compression Device [OM.PC] Per Unit Routine 09/10/18 15:53 Antiembolic Devices [RC] PER UNIT ROUTINE 09/10/18 15:56 Acetaminophen/Codeine [Tylenol with Codeine No.3 300MG/30MG] 1 tab PO Q4H PRN 09/10/18 16:06 OT Evaluation and Treatment [CONS] Routine PT Evaluation and Treatment [CONS] Routine 09/10/18 17:31 Enema [RC] PRN Bisacodyl [Dulcolax] 10 mg RECTAL DAILY PRN 09/10/18 21:00 traZODone 100 mg PO BEDTIME 09/10/18 Dinner Heart Healthy Diet [DIET] 09/11/18 07:30 Levothyroxine 112 mcg PO ACBREAKFAST Levothyroxine 25 mcg PO ACBREAKFAST 09/11/18 09:00 Gabapentin [Neurontin] 600 mg PO DAILY 09/12/18 05:11 BASIC METABOLIC PANEL,BMP [CHEM] AM CBC WITH AUTO DIFF [HEME] AM - Plan Plan:: This 83 year old female admitted with hypoxia, leukocytosis and dehydration 1. Leukocytosis: Will change Levaquin to Rocephin. Leukocytosis improving witl hydration and abx. UC pending. 2. Dehydration: Will gentle give fluids and monitor renal function. has some TED , will adjust Gabapentin due to this and monitor. 3. Physical deconditioning: consult PT/OT to evaluate and treat. OT to evaluate ADLs as well as shoulder pain. No fractures noted on Xray. Splint to R arm for comfort. 4. Hx SVT: Stable. Takes Norpace CR... I spoke with Karen Rider, this could be causing falls and urinary retention since dose was changed in January. I spoke with PCP, Dr Goode in [place], [place]. He agrees with DENISE Johnson and he has tried to change this for a while now. Her and her daughter are currently in agreement to change this. Will change to Verapamil 40 mg Q8hr, will monitor BP and HR. 5. Fibromyalgia: Stable. Continue Gabapentin at a lower dose due to renal function 6. R Shoulder pain: Will obtain CT today. VTE prophylaxis: SCDS for now due to recent brain bleed. Will have nursing obtain records from [facility]. Dispo: 2-3 days.
[2018-09-11] MEDS: Gabapentin 300 MG Cap PO SCH (09:10)
[2018-09-11] MEDS: Acetaminophen/Codeine 300-30 MG Tab PO PRN ×2 (09:10→18:45)
--- NOTE | 2018-09-11 14:43 | CT ---
EXAMINATION: CT right shoulder HISTORY: Pain COMPARISON: Radiographs dated 09/10/2018. TECHNIQUE: Axial CT imaging obtained through the right shoulder without contrast. Coronal and sagittal reconstructions obtained. FINDINGS: There is a nondisplaced fracture through the anterior glenoid. The right humeral head is high riding subchondral cystic change and sclerosis noted within the acromion and humeral head. This suggests underlying rotator cuff arthropathy. Moderate osteophyte formation is noted within the glenohumeral joint and less so within the acromioclavicular joint. Osseous structures otherwise appear osteopenic. There is a large joint effusion with extension into the subacromial space. Atelectasis is noted within the lungs. IMPRESSION: 1. Small fracture through the anterior glenoid. 2. Large glenohumeral joint effusion with extension into the subdeltoid space secondary to full-thickness rotator cuff tears. 3. 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
--- NOTE | 2018-09-11 15:47 | PCM.SN ---
- Free Text/Narrative Note: CT results discussed with Yael as well as daughter Jodee. I also discussed this with [place] Uribe PA. We will immobilize R arm with sling with pain management. We set up an appointment with [facility] in [place] on Friday for possible drainage of joint effusion.
[2018-09-11] MEDS: traZODone 50 MG Tab PO SCH (20:20)
[2018-09-12] MEDS: Sodium Chloride 0.9% 1,000 ML IV SCH ×2 (05:04→16:23)
[2018-09-12] MEDS: Levothyroxine 112 MCG Tab PO SCH (06:33)
[2018-09-12] MEDS: Levothyroxine 25 MCG Tab PO SCH (06:33)
[2018-09-12 06:41] LABS: CHLORIDE,CL 100 mmol/L (98-107); SODIUM,NA 135 mmol/L (136-145)
[2018-09-12] MEDS: cefTRIAXone 1 GM in Sodium Chloride 0.9% 50 ML IV SCH (09:07)
[2018-09-12] MEDS: Gabapentin 300 MG Cap PO SCH (09:07)
[2018-09-12] MEDS: Potassium Chloride 20 MEQ Tab.ER PO SCH ×2 (09:10→20:23)
[2018-09-12] MEDS: Acetaminophen/Codeine 300-30 MG Tab PO PRN ×2 (09:10→23:47)
[2018-09-12] MEDS ORDERED: Magnesium Sulfate/Water 2 GM in Premix Bag 1 BAG IV ONE (10:14)
--- NOTE | 2018-09-12 10:23 | PCM.PN ---
- General Info Date of Service: 09/12/18 Subjective Update: Patient was sitting on her chair in a immobilizer after CT of the shoulder indicated a fracture along with a large joint effusion. Patient is complaining of a mild headache. - Patient Data Vitals - Most Recent: Last Vital Signs Temp 36.8 C 09/12/18 07:47 Pulse 87 09/12/18 07:47 Resp 18 09/12/18 07:47 BP 140/76 09/12/18 07:47 Pulse Ox 92 L 09/12/18 07:47 Weight - Most Recent: 68.039 kg I&O - Last 24 Hours: Intake & Output 09/11/18 09/12/18 09/12/18 22:59 06:59 14:59 Intake Total 1400 1595 Output Total 989 Balance 1400 606 Lab Results Last 24 Hours: Laboratory Results - last 24 hr 09/12/18 09/12/18 09/12/18 Range/Units 06:18 06:18 06:18 WBC 11.20 H (4.0-11.0) K/uL RBC 4.03 L (4.30-5.90) M/uL Hgb 11.9 L (12.0-16.0) g/dL Hct 35.0 L (36.0-46.0) % MCV 86.8 (80.0-98.0) fL MCH 29.5 (27.0-32.0) pg MCHC 34.0 (31.0-37.0) g/dL RDW Std Deviation 43.6 (28.0-62.0) fl RDW Coeff of Natividad 14 (11.0-15.0) % Plt Count 236 (150-400) K/uL MPV 9.50 (7.40-12.00) fL Neut % (Auto) 79.2 (48.0-80.0) % Lymph % (Auto) 9.2 L (16.0-40.0) % [place] % (Auto) 11.1 (0.0-15.0) % Eos % (Auto) 0.3 (0.0-7.0) % Baso % (Auto) 0.2 (0.0-1.5) % Neut # (Auto) 8.9 H (1.4-5.7) K/uL Lymph # (Auto) 1.0 (0.6-2.4) K/uL [place] # (Auto) 1.2 H (0.0-0.8) K/uL Eos # (Auto) 0.0 (0.0-0.7) K/uL Baso # (Auto) 0.0 (0.0-0.1) K/uL Nucleated RBC % 0.0 /100WBC Nucleated RBCs # 0 K/uL Sodium 135 L (136-145) mmol/L Potassium 3.1 L (3.5-5.1) mmol/L Chloride 100 (98-107) mmol/L Carbon Dioxide 24.9 (21.0-32.0) mmol/L BUN 12 (7.0-18.0) mg/dL Creatinine 0.9 (0.6-1.0) mg/dL Est Cr Clr Drug Dosing 35.21 mL/min Estimated GFR (MDRD) > 60.0 ml/min Glucose 103 (74-106) mg/dL Calcium 9.0 (8.5-10.1) mg/dL Phosphorus 2.1 L (2.6-4.7) mg/dL Magnesium 1.5 L (1.8-2.4) mg/dL [place] Results Last 24 Hours: Microbiology 09/10/18 14:30 Aerobic Blood Culture - Preliminary Blood - Venous - Lab Draw NO GROWTH AFTER 1 DAY Anaerobic Blood Culture - Final 09/10/18 13:38 Aerobic Blood Culture - Preliminary Blood - Venous NO GROWTH AFTER 1 DAY Anaerobic Blood Culture - Final Med Orders - Current: Current Medications Acetaminophen (Tylenol) 650 mg PO Q4H PRN PRN Reason: Pain Last Admin: 09/11/18 12:08 Dose: 650 mg Acetaminophen/Codeine Phosphate (Tylenol With Codeine No.3 300mg/30mg) 1 tab PO Q4H PRN PRN Reason: Pain Last Admin: 09/12/18 09:10 Dose: 1 tab Bisacodyl (Dulcolax) 10 mg RECTAL DAILY PRN PRN Reason: Constipation Last Admin: 09/10/18 17:57 Dose: 10 mg Gabapentin (Neurontin) 600 mg PO DAILY [facility] Last Admin: 09/12/18 09:07 Dose: 600 mg Sodium Chloride (Normal Saline) 1,000 mls @ 100 mls/hr IV ASDIRECTED [facility] Last Admin: 09/12/18 05:04 Dose: 100 mls/hr Ceftriaxone Sodium 1 gm/ (Sodium Chloride) 50 mls @ 100 mls/hr IV Q24H [facility] Last Admin: 09/12/18 09:07 Dose: 100 mls/hr Magnesium Sulfate 2 gm/ Premix 50 mls @ 25 mls/hr IV ONETIME ONE Stop: 09/12/18 12:13 Levothyroxine Sodium (Levothyroxine) 112 mcg PO ACBREAKFAST [facility] Last Admin: 09/12/18 06:33 Dose: 112 mcg Levothyroxine Sodium (Levothyroxine) 25 mcg PO ACBREAKFAST [facility] Last Admin: 09/12/18 06:33 Dose: 25 mcg Potassium Chloride (Klor-Con M20) 40 meq PO BID [facility] Last Admin: 09/12/18 09:10 Dose: 40 meq Sodium Phosphate (Neutra-Phos) 250 mg PO QID [facility] Trazodone HCl (Trazodone) 100 mg PO BEDTIME [facility] Last Admin: 09/11/18 20:20 Dose: 100 mg Verapamil HCl (Calan) 40 mg PO Q8H [facility] Last Admin: 09/12/18 03:59 Dose: 40 mg Discontinued Medications Acetaminophen (Tylenol) 650 mg PO NOW ONE Stop: 09/10/18 12:49 Last Admin: 09/10/18 13:06 Dose: 650 mg Levofloxacin/Dextrose 750 mg/ (Premix) 150 mls @ 100 mls/hr IV ONETIME ONE Stop: 09/10/18 15:03 Last Admin: 09/10/18 14:38 Dose: 100 mls/hr Levofloxacin/Dextrose 750 mg/ (Premix) 150 mls @ 100 mls/hr IV Q48H [facility] Morphine Sulfate (Morphine) 2 mg IVPUSH ONETIME ONE Stop: 09/10/18 11:03 Last Admin: 09/10/18 11:30 Dose: 2 mg Ondansetron HCl (Zofran) 4 mg IVPUSH Q4H PRN PRN Reason: Nausea Disopyramide Phosphate [Norpace] 150 Mg 1 each PO BID [facility] Last Admin: 09/10/18 22:15 Dose: Not Given - Exam General: Alert Lungs: Normal Respiratory Effort Cardiovascular: Regular Rate, Regular Rhythm Extremities: Other (Patient's right shoulder is in a immobilizer) - Problem List Review Problem List Initiated/Reviewed/Updated: Yes - My Orders Last 24 Hours: My Active Orders 09/12/18 09:00 Potassium Chloride [Klor-Con M20] 40 meq PO BID 09/12/18 10:14 Magnesium Sulfate/Water [Magnesium Sulfate 2 GM in Water 50 ML] 2 gm Premix Bag 1 bag IV ONETIME 09/12/18 12:00 Phosphorus #1 [Neutra-Phos] 250 mg PO QID 09/13/18 05:11 CBC WITH AUTO DIFF [HEME] AM COMPREHENSIVE METABOLIC PN,CMP [CHEM] AM MAGNESIUM [CHEM] AM PHOSPHORUS [CHEM] AM - Plan Plan:: This 83 year old female admitted with hypoxia, leukocytosis and dehydration which all do appear to be improving; patient had been complaining of right shoulder pain CT of the shoulder indicates a small fracture along the anterior glenoid along with a large glenohumeral joint effusion into the subdeltoid space secondary to a full-thickness rotator cuff tear. 1. Leukocytosis: Improving patient currently on Rocephin UC pending. 2. Dehydration: Patient's dehydration status is also improving, her acute kidney injury does appear to have resolved her creatinine and BUN do appear to be stable continue with gentle rehydration. 3. Right shoulder fracture along with large joint effusion. Ortho was spoken to in regards to the imaging finding and recommended immobilizing her right arm along with pain management. Patient will have a appointment with orthopedics on Friday for possible drainage of the joint effusion. 4. Physical deconditioning: PT/OT to evaluate and treat due to the right shoulder issues. 4. Hx SVT: Stable. Currently on verapamil 40 mg every 8 hours from the patient' s previous medication of Norpace CR. Continue to will monitor BP and HR. 5. Fibromyalgia: Stable. Continue Gabapentin at a lower dose due to renal function VTE prophylaxis: SCDS for now due to recent brain bleed. Awaiting records from [facility]. Dispo: 2-3 days.
[2018-09-12] MEDS: Phosphorus #1 250 MG Tab PO SCH ×3 (11:20→23:48)
[2018-09-12] MEDS ORDERED: Levofloxacin/Dextrose 5%-Water 750 MG in Premix Bag 1 BAG IV SCH (16:00)
[2018-09-12] MEDS: Hydrochlorothiazide 25 MG Tab PO SCH (18:40)
[2018-09-12] MEDS: traZODone 50 MG Tab PO SCH (20:23)
[2018-09-13] MEDS: Sodium Chloride 0.9% 1,000 ML IV SCH (02:38)
[2018-09-13] MEDS: Phosphorus #1 250 MG Tab PO SCH ×4 (05:15→23:52)
[2018-09-13 06:40] LABS: CHLORIDE,CL 104 mmol/L (98-107); SODIUM,NA 135 mmol/L (136-145)
[2018-09-13] MEDS: Levothyroxine 112 MCG Tab PO SCH (08:04)
[2018-09-13] MEDS: Levothyroxine 25 MCG Tab PO SCH (08:04)
[2018-09-13] MEDS: Potassium Chloride 20 MEQ Tab.ER PO SCH ×2 (09:14→20:26)
[2018-09-13] MEDS: cefTRIAXone 1 GM in Sodium Chloride 0.9% 50 ML IV SCH (09:14)
[2018-09-13] MEDS: Acetaminophen/Codeine 300-30 MG Tab PO PRN ×3 (09:14→20:26)
[2018-09-13] MEDS: Hydrochlorothiazide 25 MG Tab PO SCH (09:14)
[2018-09-13] MEDS: Gabapentin 300 MG Cap PO SCH (09:14)
[2018-09-13] MEDS: cefTRIAXone 1 GM in Premix Bag 1 BAG IV SCH (10:53)
[2018-09-13] MEDS ORDERED: Potassium Chloride 20 MEQ Tab.ER PO ONE (12:21)
[2018-09-13] MEDS ORDERED: Magnesium Sulfate/Water 2 GM in Premix Bag 1 BAG IV ONE (12:21)
--- NOTE | 2018-09-13 12:24 | PCM.PN ---
- General Info Date of Service: 09/13/18 - Review of Systems Systems Review Comment:: no new complaints, no fevers, no palpitations - Patient Data Vitals - Most Recent: Last Vital Signs Temp 37.3 C 09/13/18 11:24 Pulse 101 H 09/13/18 11:24 Resp 16 09/13/18 11:24 BP 159/87 H 09/13/18 11:24 Pulse Ox 94 L 09/13/18 11:24 Weight - Most Recent: 68.039 kg I&O - Last 24 Hours: Intake & Output 09/12/18 09/13/18 09/13/18 22:59 06:59 14:59 Intake Total 800 1240 Output Total 362 518 Balance 438 722 Lab Results Last 24 Hours: Laboratory Results - last 24 hr 09/13/18 09/13/18 Range/Units 06:01 06:01 WBC 8.77 (4.0-11.0) K/uL RBC 3.93 L (4.30-5.90) M/uL Hgb 11.4 L (12.0-16.0) g/dL Hct 34.0 L (36.0-46.0) % MCV 86.5 (80.0-98.0) fL MCH 29.0 (27.0-32.0) pg MCHC 33.5 (31.0-37.0) g/dL RDW Std Deviation 43.7 (28.0-62.0) fl RDW Coeff of Natividad 14 (11.0-15.0) % Plt Count 247 (150-400) K/uL MPV 9.30 (7.40-12.00) fL Neut % (Auto) 74.9 (48.0-80.0) % Lymph % (Auto) 13.2 L (16.0-40.0) % [place] % (Auto) 10.7 (0.0-15.0) % Eos % (Auto) 1.0 (0.0-7.0) % Baso % (Auto) 0.2 (0.0-1.5) % Neut # (Auto) 6.6 H (1.4-5.7) K/uL Lymph # (Auto) 1.2 (0.6-2.4) K/uL [place] # (Auto) 0.9 H (0.0-0.8) K/uL Eos # (Auto) 0.1 (0.0-0.7) K/uL Baso # (Auto) 0.0 (0.0-0.1) K/uL Nucleated RBC % 0.0 /100WBC Nucleated RBCs # 0 K/uL Sodium 135 L (136-145) mmol/L Potassium 3.5 (3.5-5.1) mmol/L Chloride 104 (98-107) mmol/L Carbon Dioxide 23.2 (21.0-32.0) mmol/L BUN 10 (7.0-18.0) mg/dL Creatinine 0.7 (0.6-1.0) mg/dL Est Cr Clr Drug Dosing 45.27 mL/min Estimated GFR (MDRD) > 60.0 ml/min Glucose 94 (74-106) mg/dL Calcium 8.9 (8.5-10.1) mg/dL Phosphorus 2.7 (2.6-4.7) mg/dL Magnesium 1.8 (1.8-2.4) mg/dL Total Bilirubin 0.4 (0.2-1.0) mg/dL AST 167 H (15-37) IU/L ALT 161 H (14-63) IU/L Alkaline Phosphatase 118 H (46-116) U/L Total Protein 6.1 L (6.4-8.2) g/dL Albumin 2.0 L (3.4-5.0) g/dL Globulin 4.1 H (2.6-4.0) g/dL Albumin/Globulin Ratio 0.5 L (0.9-1.6) [place] Results Last 24 Hours: Microbiology 09/10/18 12:45 Urine Culture - Final Urine, Clean Catch No Growth 09/10/18 14:30 Aerobic Blood Culture - Preliminary Blood - Venous - Lab Draw NO GROWTH AFTER 2 DAYS Anaerobic Blood Culture - Final 09/10/18 13:38 Aerobic Blood Culture - Preliminary Blood - Venous NO GROWTH AFTER 2 DAYS Anaerobic Blood Culture - Final Med Orders - Current: Current Medications Acetaminophen (Tylenol) 650 mg PO Q4H PRN PRN Reason: Pain Last Admin: 09/11/18 12:08 Dose: 650 mg Acetaminophen/Codeine Phosphate (Tylenol With Codeine No.3 300mg/30mg) 1 tab PO Q4H PRN PRN Reason: Pain Last Admin: 09/13/18 09:14 Dose: 1 tab Bisacodyl (Dulcolax) 10 mg RECTAL DAILY PRN PRN Reason: Constipation Last Admin: 09/10/18 17:57 Dose: 10 mg Gabapentin (Neurontin) 600 mg PO DAILY [facility] Last Admin: 09/13/18 09:14 Dose: 600 mg Hydrochlorothiazide (Hydrochlorothiazide) 25 mg PO DAILY [facility] Last Admin: 09/13/18 09:14 Dose: 25 mg Sodium Chloride (Normal Saline) 1,000 mls @ 100 mls/hr IV ASDIRECTED [facility] Last Admin: 09/13/18 02:38 Dose: 100 mls/hr Ceftriaxone Sodium/Dextrose 1 (gm/ Premix) 50 mls @ 100 mls/hr IV Q24H [facility] Last Admin: 09/13/18 10:53 Dose: Not Given Levothyroxine Sodium (Levothyroxine) 112 mcg PO ACBREAKFAST [facility] Last Admin: 09/13/18 08:04 Dose: 112 mcg Levothyroxine Sodium (Levothyroxine) 25 mcg PO ACBREAKFAST [facility] Last Admin: 09/13/18 08:04 Dose: 25 mcg Potassium Chloride (Klor-Con M20) 40 meq PO BID [facility] Last Admin: 09/13/18 09:14 Dose: 40 meq Sodium Phosphate (Neutra-Phos) 250 mg PO QID [facility] Last Admin: 09/13/18 05:15 Dose: 250 mg Trazodone HCl (Trazodone) 100 mg PO BEDTIME [facility] Last Admin: 09/12/18 20:23 Dose: 100 mg Verapamil HCl (Calan) 40 mg PO Q8H [facility] Last Admin: 09/13/18 05:15 Dose: 40 mg Discontinued Medications Acetaminophen (Tylenol) 650 mg PO NOW ONE Stop: 09/10/18 12:49 Last Admin: 09/10/18 13:06 Dose: 650 mg Levofloxacin/Dextrose 750 mg/ (Premix) 150 mls @ 100 mls/hr IV ONETIME ONE Stop: 09/10/18 15:03 Last Admin: 09/10/18 14:38 Dose: 100 mls/hr Levofloxacin/Dextrose 750 mg/ (Premix) 150 mls @ 100 mls/hr IV Q48H [facility] Ceftriaxone Sodium 1 gm/ (Sodium Chloride) 50 mls @ 100 mls/hr IV Q24H [facility] Last Admin: 09/13/18 09:14 Dose: 100 mls/hr Magnesium Sulfate 2 gm/ Premix 50 mls @ 25 mls/hr IV ONETIME ONE Stop: 09/12/18 12:13 Last Admin: 09/12/18 10:28 Dose: 25 mls/hr Morphine Sulfate (Morphine) 2 mg IVPUSH ONETIME ONE Stop: 09/10/18 11:03 Last Admin: 09/10/18 11:30 Dose: 2 mg Ondansetron HCl (Zofran) 4 mg IVPUSH Q4H PRN PRN Reason: Nausea Disopyramide Phosphate [Norpace] 150 Mg 1 each PO BID [facility] Last Admin: 09/10/18 22:15 Dose: Not Given - Exam General: Alert, Oriented Lungs: Clear to Auscultation, Normal Respiratory Effort Cardiovascular: Regular Rate, Regular Rhythm GI/Abdominal Exam: Soft, Non-Tender Extremities: Non-Tender, No Pedal Edema Skin: Warm, Dry, Intact - Problem List Review Problem List Initiated/Reviewed/Updated: Yes - My Orders Last 24 Hours: My Active Orders 09/12/18 20:01 Admission Status [Patient Status] [ADT] Routine 09/13/18 12:21 Magnesium Sulfate/Water [Magnesium Sulfate 2 GM in Water 50 ML] 2 gm Premix Bag 1 bag IV ONETIME Potassium Chloride [Klor-Con M20] 40 meq PO ONETIME ONE 09/14/18 05:11 CBC WITH AUTO DIFF [HEME] AM COMPREHENSIVE METABOLIC PN,CMP [CHEM] AM - Plan Plan:: This 83 year old female admitted with hypoxia, leukocytosis and dehydration which all do appear to be improving; patient had been complaining of right shoulder pain CT of the shoulder indicates a small fracture along the anterior glenoid along with a large glenohumeral joint effusion into the subdeltoid space secondary to a full-thickness rotator cuff tear. 1. Leukocytosis: Suspect a UTI. continue Rocephin 2. Right shoulder fracture along with large joint effusion. Ortho was spoken to in regards to the imaging finding and recommended immobilizing her right arm along with pain management. Patient will have a appointment with orthopedics on Friday for possible drainage of the joint effusion. 3. Physical deconditioning: PT/OT to evaluate and treat due to the right shoulder issues. 4. Hx SVT: Stable. Currently on verapamil 40 mg every 8 hours from the patient' s previous medication of Norpace CR. Continue to will monitor BP and HR. VTE prophylaxis: SCDS for now due to recent brain bleed. Awaiting records from [facility]. Dispo: 2-3 days.
[2018-09-13] MEDS: Docusate Sodium 100 MG Cap PO PRN (12:44)
[2018-09-13] MEDS: traZODone 50 MG Tab PO SCH (20:26)
[2018-09-14] MEDS: Phosphorus #1 250 MG Tab PO SCH (05:16)
[2018-09-14] MEDS: Levothyroxine 112 MCG Tab PO SCH (06:39)
[2018-09-14] MEDS: Levothyroxine 25 MCG Tab PO SCH (06:39)
[2018-09-14 07:06] LABS: CHLORIDE,CL 100 mmol/L (98-107); SODIUM,NA 134 mmol/L (136-145)
[2018-09-14] MEDS: Gabapentin 300 MG Cap PO SCH (08:24)
[2018-09-14] MEDS: Docusate Sodium 100 MG Cap PO PRN (08:24)
[2018-09-14] MEDS: Potassium Chloride 20 MEQ Tab.ER PO SCH ×2 (08:25→20:25)
[2018-09-14] MEDS: Hydrochlorothiazide 25 MG Tab PO SCH (08:25)
[2018-09-14] MEDS: Acetaminophen/Codeine 300-30 MG Tab PO PRN ×3 (08:25→20:25)
[2018-09-14] MEDS ORDERED: Magnesium Sulfate/Water 2 GM in Premix Bag 1 BAG IV ONE (10:27)
[2018-09-14] MEDS: cefTRIAXone 1 GM in Premix Bag 1 BAG IV SCH (10:40)
--- NOTE | 2018-09-14 10:53 | PCM.PN ---
- General Info Date of Service: 09/14/18 Admission Dx/Problem (Free Text): Admission Diagnosis/Problem Admission Diagnosis/Problem Hypoxia Subjective Update: Doing better today. R shoulder still sore, in sling. No palpitations no chest pain. Ambulating well. Functional Status: Reports: Pain Controlled, Tolerating Diet, Ambulating, Urinating - Review of Systems General: Reports: No Symptoms. Denies: Weakness, Fatigue, Malaise HEENT: Reports: No Symptoms. Denies: Headaches, Sore Throat Pulmonary: Reports: No Symptoms. Denies: Shortness of Breath Cardiovascular: Reports: No Symptoms. Denies: Chest Pain Gastrointestinal: Reports: No Symptoms. Denies: Abdominal Pain, Nausea, Vomiting Musculoskeletal: Reports: Shoulder Pain (R) Skin: Reports: No Symptoms Neurological: Reports: No Symptoms Psychiatric: Reports: No Symptoms - Patient Data Vitals - Most Recent: Last Vital Signs Temp 97.9 F 09/14/18 07:31 Pulse 86 09/14/18 07:31 Resp 18 09/14/18 07:31 BP 138/85 09/14/18 07:31 Pulse Ox 93 L 09/14/18 09:13 Weight - Most Recent: 68.039 kg I&O - Last 24 Hours: Intake & Output 09/13/18 09/14/18 09/14/18 22:59 06:59 14:59 Intake Total 400 300 Output Total 550 Balance 400 -250 Lab Results Last 24 Hours: Laboratory Results - last 24 hr 09/14/18 09/14/18 09/14/18 Range/Units 06:30 06:30 06:30 WBC 9.40 (4.0-11.0) K/uL RBC 4.16 L (4.30-5.90) M/uL Hgb 12.2 (12.0-16.0) g/dL Hct 36.1 (36.0-46.0) % MCV 86.8 (80.0-98.0) fL MCH 29.3 (27.0-32.0) pg MCHC 33.8 (31.0-37.0) g/dL RDW Std Deviation 43.9 (28.0-62.0) fl RDW Coeff of [place]ivid[place] 14 (11.0-15.0) % Plt Count 290 (150-400) K/uL MPV 9.20 (7.40-12.00) fL Neut % (Auto) 76.2 (48.0-80.0) % Lymph % (Auto) 13.6 L (16.0-40.0) % [place] % (Auto) 8.6 (0.0-15.0) % Eos % (Auto) 1.4 (0.0-7.0) % Baso % (Auto) 0.2 (0.0-1.5) % Neut # (Auto) 7.2 H (1.4-5.7) K/uL Lymph # (Auto) 1.3 (0.6-2.4) K/uL [place] # (Auto) 0.8 (0.0-0.8) K/uL Eos # (Auto) 0.1 (0.0-0.7) K/uL Baso # (Auto) 0.0 (0.0-0.1) K/uL Nucleated RBC % 0.0 /100WBC Nucleated RBCs # 0 K/uL Sodium 134 L (136-145) mmol/L Potassium 4.0 (3.5-5.1) mmol/L Chloride 100 (98-107) mmol/L Carbon Dioxide 25.9 (21.0-32.0) mmol/L BUN 8 (7.0-18.0) mg/dL Creatinine 0.7 (0.6-1.0) mg/dL Est Cr Clr Drug Dosing 45.27 mL/min Estimated GFR (MDRD) > 60.0 ml/min Glucose 99 (74-106) mg/dL Calcium 9.4 (8.5-10.1) mg/dL Phosphorus 3.6 (2.6-4.7) mg/dL Magnesium 1.6 L (1.8-2.4) mg/dL Total Bilirubin 0.4 (0.2-1.0) mg/dL AST 141 H (15-37) IU/L ALT 182 H (14-63) IU/L Alkaline Phosphatase 133 H (46-116) U/L Total Protein 6.8 (6.4-8.2) g/dL Albumin 2.3 L (3.4-5.0) g/dL Globulin 4.5 H (2.6-4.0) g/dL Albumin/Globulin Ratio 0.5 L (0.9-1.6) [facility] Results Last 24 Hours: Microbiology 09/10/18 14:30 Aerobic Blood Culture - Preliminary Blood - Venous - Lab Draw NO GROWTH AFTER 3 DAYS Anaerobic Blood Culture - Final 09/10/18 13:38 Aerobic Blood Culture - Preliminary Blood - Venous NO GROWTH AFTER 3 DAYS Anaerobic Blood Culture - Final 09/10/18 12:45 Urine Culture - Final Urine, Clean Catch No Growth Med Orders - Current: Current Medications Acetaminophen/Codeine Phosphate (Tylenol With Codeine No.3 300mg/30mg) 1 tab PO Q4H PRN PRN Reason: Pain Last Admin: 09/14/18 08:25 Dose: 1 tab Bisacodyl (Dulcolax) 10 mg RECTAL DAILY PRN PRN Reason: Constipation Last Admin: 09/10/18 17:57 Dose: 10 mg Docusate Sodium (Colace) 100 mg PO BID PRN PRN Reason: Constipation Last Admin: 09/14/18 08:24 Dose: 100 mg Gabapentin (Neurontin) 600 mg PO DAILY [facility] Last Admin: 09/14/18 08:24 Dose: 600 mg Hydrochlorothiazide (Hydrochlorothiazide) 25 mg PO DAILY [facility] Last Admin: 09/14/18 08:25 Dose: 25 mg Ceftriaxone Sodium/Dextrose 1 (gm/ Premix) 50 mls @ 100 mls/hr IV Q24H [facility] Last Admin: 09/14/18 10:40 Dose: 100 mls/hr Magnesium Sulfate 2 gm/ Premix 50 mls @ 50 mls/hr IV ONETIME ONE Stop: 09/14/18 11:26 Levothyroxine Sodium (Levothyroxine) 112 mcg PO ACBREAKFAST [facility] Last Admin: 09/14/18 06:39 Dose: 112 mcg Levothyroxine Sodium (Levothyroxine) 25 mcg PO ACBREAKFAST [facility] Last Admin: 09/14/18 06:39 Dose: 25 mcg Metoprolol Succinate (Toprol Xl) 12.5 mg PO DAILY [facility] Potassium Chloride (Klor-Con M20) 40 meq PO BID [facility] Last Admin: 09/14/18 08:25 Dose: 40 meq Trazodone HCl (Trazodone) 100 mg PO BEDTIME [facility] Last Admin: 09/13/18 20:26 Dose: 100 mg Discontinued Medications Acetaminophen (Tylenol) 650 mg PO NOW ONE Stop: 09/10/18 12:49 Last Admin: 09/10/18 13:06 Dose: 650 mg Acetaminophen (Tylenol) 650 mg PO Q4H PRN PRN Reason: Pain Last Admin: 09/11/18 12:08 Dose: 650 mg Sodium Chloride (Normal Saline) 1,000 mls @ 100 mls/hr IV ASDIRECTED [facility] Last Admin: 09/13/18 02:38 Dose: 100 mls/hr Levofloxacin/Dextrose 750 mg/ (Premix) 150 mls @ 100 mls/hr IV ONETIME ONE Stop: 09/10/18 15:03 Last Admin: 09/10/18 14:38 Dose: 100 mls/hr Levofloxacin/Dextrose 750 mg/ (Premix) 150 mls @ 100 mls/hr IV Q48H [facility] Ceftriaxone Sodium 1 gm/ (Sodium Chloride) 50 mls @ 100 mls/hr IV Q24H [facility] Last Admin: 09/13/18 09:14 Dose: 100 mls/hr Magnesium Sulfate 2 gm/ Premix 50 mls @ 25 mls/hr IV ONETIME ONE Stop: 09/12/18 12:13 Last Admin: 09/12/18 10:28 Dose: 25 mls/hr Magnesium Sulfate 2 gm/ Premix 50 mls @ 50 mls/hr IV ONETIME ONE Stop: 09/13/18 13:20 Last Admin: 09/13/18 12:41 Dose: 50 mls/hr Morphine Sulfate (Morphine) 2 mg IVPUSH ONETIME ONE Stop: 09/10/18 11:03 Last Admin: 09/10/18 11:30 Dose: 2 mg Ondansetron HCl (Zofran) 4 mg IVPUSH Q4H PRN PRN Reason: Nausea Disopyramide Phosphate [Norpace] 150 Mg 1 each PO BID [facility] Last Admin: 09/10/18 22:15 Dose: Not Given Potassium Chloride (Klor-Con M20) 40 meq PO ONETIME ONE Stop: 09/13/18 12:22 Last Admin: 09/13/18 12:44 Dose: 40 meq Sodium Phosphate (Neutra-Phos) 250 mg PO QID [facility] Last Admin: 09/14/18 05:16 Dose: 250 mg Verapamil HCl (Calan) 40 mg PO Q8H [facility] Last Admin: 09/14/18 05:09 Dose: 40 mg - Exam General: Alert, Oriented, Cooperative, No Acute Distress Lungs: Clear to Auscultation, Normal Respiratory Effort Cardiovascular: Regular Rate, Regular Rhythm. No: No Murmurs, Irregular Rhythm GI/Abdominal Exam: Normal Bowel Sounds, Soft, Non-Tender Extremities: Normal Inspection, No Pedal Edema. No: Normal Range of Motion (R shoulder limited, sling in place. joint effusion noted with swelling) Neurological: No New Focal Deficit Psy/Mental Status: Alert, Normal Affect, Normal Mood - Problem List & Annotations (1) Leukocytosis, unspecified SNOMED Code(s): 673738804, 798865332 Code(s): D72.829 - ELEVATED WHITE BLOOD CELL COUNT, UNSPECIFIED Status: Acute Current Visit: Yes (2) Dehydration SNOMED Code(s): 82324575 Code(s): E86.0 - DEHYDRATION Status: Acute Current Visit: Yes (3) TED (acute kidney injury) SNOMED Code(s): 93492292 Code(s): N17.9 - ACUTE KIDNEY FAILURE, UNSPECIFIED Status: Acute Current Visit: Yes (4) Physical deconditioning SNOMED Code(s): 53206998006396 Code(s): R53.81 - OTHER MALAISE Status: Acute Current Visit: Yes (5) Shoulder pain SNOMED Code(s): 25765321 Code(s): M25.519 - PAIN IN UNSPECIFIED SHOULDER Status: Acute Current Visit: Yes Qualifiers: Chronicity: acute Laterality: right Qualified Code(s): M25.511 - Pain in right shoulder (6) Decreased activities of daily living (ADL) SNOMED Code(s): 443784940 Code(s): R68.89 - OTHER GENERAL SYMPTOMS AND SIGNS Status: Acute Current Visit: Yes (7) Hypoxia SNOMED Code(s): 417854702 Code(s): R09.02 - HYPOXEMIA Status: Acute Current Visit: Yes (8) HTN (hypertension) SNOMED Code(s): 91565466 Code(s): I10 - ESSENTIAL (PRIMARY) HYPERTENSION Status: Chronic Current Visit: Yes Qualifiers: Hypertension type: essential hypertension Qualified Code(s): I10 - Essential (primary) hypertension (9) Transaminitis SNOMED Code(s): 517415332, 159965363 Code(s): R74.0 - NONSPEC ELEV OF LEVELS OF TRANSAMNS & LACTIC ACID DEHYDRGNSE Status: Acute Current Visit: Yes - Problem List Review Problem List Initiated/Reviewed/Updated: Yes - My Orders Last 24 Hours: My Active Orders 09/13/18 10:39 [email or web address] [Rocephin in Dextrose,Iso-Osm 1 GM/50 ML] 1 gm Premix Bag 1 bag IV Q24H 09/14/18 10:27 Magnesium Sulfate/Water [Magnesium Sulfate 2 GM in Water 50 ML] 2 gm Premix Bag 1 bag IV ONETIME 09/14/18 10:51 Abdomen Ltd [US] Routine HEPATITIS PANEL (4) [REF] Routine 09/14/18 11:00 Metoprolol Succinate [Toprol XL] 12.5 mg PO DAILY - Plan Plan:: This 83 year old female admitted with hypoxia, leukocytosis and dehydration 1. Leukocytosis: Suspect a UTI. continue Rocephin UC negative. 2. Right shoulder fracture along with large joint effusion: Ortho changed appointment to Friday due to no discharge today. Continue Pain management. 3. Physical deconditioning: PT/OT to evaluate and treat 4. Hx SVT: Stable. Continue to will monitor BP and HR. Due to transaminitis, will stop Verapamil and start Metoprolol XL 12.5 mg daily and monitor 5. Transaminitis: Consider due to Verapamil since normal on admission. Hepatitis panel pending. will obtain Liver US today. VTE prophylaxis: SCDS for now due to recent brain bleed. Dispo: 2-3 days.
[2018-09-14] MEDS: Metoprolol Succinate 25 MG Tab.ER PO SCH (11:37)
[2018-09-14] MEDS ORDERED: Polyethylene Glycol 3350 Powder 17 GM Packet PO PRN (14:30)
--- NOTE | 2018-09-14 18:31 | US ---
INDICATION: Elevated LFTs TECHNIQUE: Ultrasound abdomen limited. Sonographic images of the right upper quadrant were obtained using brizuela-scale and color Doppler images. COMPARISON: None FINDINGS: Liver: 15.70 centimeters. Normal hepatic parenchyma.. No masses. No intrahepatic biliary dilatation. Gallbladder: No stones or sludge. Normal wall thickness. No pericholecystic fluid. Common bile duct: 4 mm. Pancreas: Normal. Right kidney: A 0.6 cm. Normal echotexture and cortex. No masses, stones, or hydronephrosis. Vasculature: Proximal abdominal aorta and IVC are normal. IMPRESSION: Sonographically normal appearing liver. Sonographically normal-appearing gallbladder and common bile duct. Dictated by Reinier Panda MD @ 09/14/2018 6:29:11 PM Dictated by: Reinier Panda MD @ 09/14/2018 18:29:15 (Electronically Signed)
[2018-09-14] MEDS: traZODone 50 MG Tab PO SCH (20:25)
[2018-09-15 06:01] LABS: CHLORIDE,CL 102 mmol/L (98-107); SODIUM,NA 137 mmol/L (136-145)
[2018-09-15] MEDS: Levothyroxine 25 MCG Tab PO SCH (07:10)
[2018-09-15] MEDS: Levothyroxine 112 MCG Tab PO SCH (07:10)
[2018-09-15] MEDS: Potassium Chloride 20 MEQ Tab.ER PO SCH (08:44)
[2018-09-15] MEDS: Hydrochlorothiazide 25 MG Tab PO SCH (08:44)
[2018-09-15] MEDS: Gabapentin 300 MG Cap PO SCH (08:45)
[2018-09-15] MEDS: Metoprolol Succinate 25 MG Tab.ER PO SCH (08:45)
--- NOTE | 2018-09-15 10:07 | PCM.PN ---
- General Info Date of Service: 09/15/18 Admission Dx/Problem (Free Text): Admission Diagnosis/Problem Admission Diagnosis/Problem Hypoxia - Patient Data Vitals - Most Recent: Last Vital Signs Temp 99.1 F 09/15/18 07:39 Pulse 80 09/15/18 08:45 Resp 17 09/15/18 07:39 BP 180/83 H 09/15/18 08:45 Pulse Ox 95 09/15/18 07:39 Weight - Most Recent: 68.039 kg I&O - Last 24 Hours: Intake & Output 09/14/18 09/15/18 09/15/18 22:59 06:59 14:59 Intake Total 900 250 Output Total 700 300 Balance 200 -50 Lab Results Last 24 Hours: Laboratory Results - last 24 hr 09/15/18 09/15/18 Range/Units 04:55 04:55 WBC 8.49 (4.0-11.0) K/uL RBC 4.24 L (4.30-5.90) M/uL Hgb 12.6 (12.0-16.0) g/dL Hct 37.1 (36.0-46.0) % MCV 87.5 (80.0-98.0) fL MCH 29.7 (27.0-32.0) pg MCHC 34.0 (31.0-37.0) g/dL RDW Std Deviation 44.8 (28.0-62.0) fl RDW Coeff of Natividad 14 (11.0-15.0) % Plt Count 341 (150-400) K/uL MPV 9.60 (7.40-12.00) fL Neut % (Auto) 70.0 (48.0-80.0) % Lymph % (Auto) 17.8 (16.0-40.0) % [place] % (Auto) 9.2 (0.0-15.0) % Eos % (Auto) 2.5 (0.0-7.0) % Baso % (Auto) 0.5 (0.0-1.5) % Neut # (Auto) 6.0 H (1.4-5.7) K/uL Lymph # (Auto) 1.5 (0.6-2.4) K/uL [place] # (Auto) 0.8 (0.0-0.8) K/uL Eos # (Auto) 0.2 (0.0-0.7) K/uL Baso # (Auto) 0.0 (0.0-0.1) K/uL Nucleated RBC % 0.0 /100WBC Nucleated RBCs # 0 K/uL Sodium 137 (136-145) mmol/L Potassium 4.5 (3.5-5.1) mmol/L Chloride 102 (98-107) mmol/L Carbon Dioxide 27.8 (21.0-32.0) mmol/L BUN 10 (7.0-18.0) mg/dL Creatinine 0.9 (0.6-1.0) mg/dL Est Cr Clr Drug Dosing 35.21 mL/min Estimated GFR (MDRD) > 60.0 ml/min Glucose 97 (74-106) mg/dL Calcium 9.3 (8.5-10.1) mg/dL Total Bilirubin 0.4 (0.2-1.0) mg/dL AST 121 H (15-37) IU/L ALT 184 H (14-63) IU/L Alkaline Phosphatase 133 H (46-116) U/L Total Protein 7.0 (6.4-8.2) g/dL Albumin 2.4 L (3.4-5.0) g/dL Globulin 4.6 H (2.6-4.0) g/dL Albumin/Globulin Ratio 0.5 L (0.9-1.6) Genaro Results Last 24 Hours: Microbiology 09/10/18 14:30 Aerobic Blood Culture - Preliminary Blood - Venous - Lab Draw NO GROWTH AFTER 4 DAYS Anaerobic Blood Culture - Final 09/10/18 13:38 Aerobic Blood Culture - Preliminary Blood - Venous NO GROWTH AFTER 4 DAYS Anaerobic Blood Culture - Final Med Orders - Current: Current Medications Acetaminophen/Codeine Phosphate (Tylenol With Codeine No.3 300mg/30mg) 1 tab PO Q4H PRN PRN Reason: Pain Last Admin: 09/14/18 20:25 Dose: 1 tab Bisacodyl (Dulcolax) 10 mg RECTAL DAILY PRN PRN Reason: Constipation Last Admin: 09/10/18 17:57 Dose: 10 mg Docusate Sodium (Colace) 100 mg PO BID PRN PRN Reason: Constipation Last Admin: 09/14/18 08:24 Dose: 100 mg Gabapentin (Neurontin) 600 mg PO DAILY [facility] Last Admin: 09/15/18 08:45 Dose: 600 mg Hydrochlorothiazide (Hydrochlorothiazide) 25 mg PO DAILY [facility] Last Admin: 09/15/18 08:44 Dose: 25 mg Ceftriaxone Sodium/Dextrose 1 (gm/ Premix) 50 mls @ 100 mls/hr IV Q24H [facility] Last Admin: 09/14/18 10:40 Dose: 100 mls/hr Levothyroxine Sodium (Levothyroxine) 112 mcg PO ACBREAKFAST [facility] Last Admin: 09/15/18 07:10 Dose: 112 mcg Levothyroxine Sodium (Levothyroxine) 25 mcg PO ACBREAKFAST [facility] Last Admin: 09/15/18 07:10 Dose: 25 mcg Metoprolol Succinate (Toprol Xl) 12.5 mg PO DAILY [facility] Last Admin: 09/15/18 08:45 Dose: 12.5 mg Polyethylene Glycol (Miralax) 17 gm PO BEDTIME PRN PRN Reason: Constipation Potassium Chloride (Klor-Con M20) 40 meq PO BID [facility] Last Admin: 09/15/18 08:44 Dose: 40 meq Trazodone HCl (Trazodone) 100 mg PO BEDTIME [facility] Last Admin: 09/14/18 20:25 Dose: 100 mg Discontinued Medications Acetaminophen (Tylenol) 650 mg PO NOW ONE Stop: 09/10/18 12:49 Last Admin: 09/10/18 13:06 Dose: 650 mg Acetaminophen (Tylenol) 650 mg PO Q4H PRN PRN Reason: Pain Last Admin: 09/11/18 12:08 Dose: 650 mg Sodium Chloride (Normal Saline) 1,000 mls @ 100 mls/hr IV ASDIRECTED [facility] Last Admin: 09/13/18 02:38 Dose: 100 mls/hr Levofloxacin/Dextrose 750 mg/ (Premix) 150 mls @ 100 mls/hr IV ONETIME ONE Stop: 09/10/18 15:03 Last Admin: 09/10/18 14:38 Dose: 100 mls/hr Levofloxacin/Dextrose 750 mg/ (Premix) 150 mls @ 100 mls/hr IV Q48H [facility] Ceftriaxone Sodium 1 gm/ (Sodium Chloride) 50 mls @ 100 mls/hr IV Q24H [facility] Last Admin: 09/13/18 09:14 Dose: 100 mls/hr Magnesium Sulfate 2 gm/ Premix 50 mls @ 25 mls/hr IV ONETIME ONE Stop: 09/12/18 12:13 Last Admin: 09/12/18 10:28 Dose: 25 mls/hr Magnesium Sulfate 2 gm/ Premix 50 mls @ 50 mls/hr IV ONETIME ONE Stop: 09/13/18 13:20 Last Admin: 09/13/18 12:41 Dose: 50 mls/hr Magnesium Sulfate 2 gm/ Premix 50 mls @ 50 mls/hr IV ONETIME ONE Stop: 09/14/18 11:26 Last Admin: 09/14/18 11:14 Dose: 50 mls/hr Morphine Sulfate (Morphine) 2 mg IVPUSH ONETIME ONE Stop: 09/10/18 11:03 Last Admin: 09/10/18 11:30 Dose: 2 mg Ondansetron HCl (Zofran) 4 mg IVPUSH Q4H PRN PRN Reason: Nausea Disopyramide Phosphate [Norpace] 150 Mg 1 each PO BID [facility] Last Admin: 09/10/18 22:15 Dose: Not Given Potassium Chloride (Klor-Con M20) 40 meq PO ONETIME ONE Stop: 09/13/18 12:22 Last Admin: 09/13/18 12:44 Dose: 40 meq Sodium Phosphate (Neutra-Phos) 250 mg PO QID [facility] Last Admin: 09/14/18 05:16 Dose: 250 mg Verapamil HCl (Calan) 40 mg PO Q8H [facility] Last Admin: 09/14/18 05:09 Dose: 40 mg - Problem List & Annotations (1) Leukocytosis, unspecified SNOMED Code(s): 150449525, 695326832 Code(s): D72.829 - ELEVATED WHITE BLOOD CELL COUNT, UNSPECIFIED Status: Acute Current Visit: Yes (2) Dehydration SNOMED Code(s): 74697358 Code(s): E86.0 - DEHYDRATION Status: Acute Current Visit: Yes (3) TED (acute kidney injury) SNOMED Code(s): 25818519 Code(s): N17.9 - ACUTE KIDNEY FAILURE, UNSPECIFIED Status: Acute Current Visit: Yes (4) Physical deconditioning SNOMED Code(s): 40326122151938 Code(s): R53.81 - OTHER MALAISE Status: Acute Current Visit: Yes (5) Shoulder pain SNOMED Code(s): 15841275 Code(s): M25.519 - PAIN IN UNSPECIFIED SHOULDER Status: Acute Current Visit: Yes Qualifiers: Chronicity: acute Laterality: right Qualified Code(s): M25.511 - Pain in right shoulder (6) Decreased activities of daily living (ADL) SNOMED Code(s): 584320406 Code(s): R68.89 - OTHER GENERAL SYMPTOMS AND SIGNS Status: Acute Current Visit: Yes (7) Hypoxia SNOMED Code(s): 437374633 Code(s): R09.02 - HYPOXEMIA Status: Acute Current Visit: Yes (8) HTN (hypertension) SNOMED Code(s): 49965748 Code(s): I10 - ESSENTIAL (PRIMARY) HYPERTENSION Status: Chronic Current Visit: Yes Qualifiers: Hypertension type: essential hypertension Qualified Code(s): I10 - Essential (primary) hypertension (9) Transaminitis SNOMED Code(s): 801940112, 889704192 Code(s): R74.0 - NONSPEC ELEV OF LEVELS OF TRANSAMNS & LACTIC ACID DEHYDRGNSE Status: Acute Current Visit: Yes - My Orders Last 24 Hours: My Active Orders 09/14/18 11:00 Metoprolol Succinate [Toprol XL] 12.5 mg PO DAILY 09/14/18 11:05 HEPATITIS PANEL (4) [REF] Routine 09/14/18 14:30 Polyethylene Glycol 3350 [MiraLAX] 17 gm PO BEDTIME PRN 09/15/18 10:04 Ready for Discharge [RC] PER UNIT ROUTINE 09/16/18 05:11 CBC WITH AUTO DIFF [HEME] AM COMPREHENSIVE METABOLIC PN,CMP [CHEM] AM - Plan Plan:: This 83 year old female admitted with hypoxia, leukocytosis and dehydration 1. Leukocytosis: Suspect a UTI. continue Rocephin UC negative. 2. Right shoulder fracture along with large joint effusion: Ortho changed appointment to Friday due to no discharge today. Continue Pain management. 3. Physical deconditioning: PT/OT to evaluate and treat 4. Hx SVT: Stable. Continue to will monitor BP and HR. Due to transaminitis, will stop Verapamil and start Metoprolol XL 12.5 mg daily and monitor 5. Transaminitis: Consider due to Verapamil since normal on admission. Hepatitis panel pending. will obtain Liver US today. VTE prophylaxis: SCDS for now due to recent brain bleed. Dispo: 2-3 days.
[2018-09-15] MEDS: cefTRIAXone 1 GM in Premix Bag 1 BAG IV SCH (10:08)
[2018-09-15] MEDS: Docusate Sodium 100 MG Cap PO PRN (10:58)
--- NOTE | 2018-09-15 12:10 | PCM.DCSUM1 ---
Discharge Summary - Hospital Course Brief History: This 83 year old female with pmh of HTN and recent falls presented to the ED via EMS due to weakness and generalized malaise. Yael does little talk, her daughter helps with most of history and ROS. Her daughter reports she has been very weak since she was discharged home from a [facility] the beginning of the week after she fell and had a "brain bleed". She reports she had a thorough workup there regarding falls and possible syncope and they couldn't find anything. She reports she had one day of therapy and then sent home. At home she has not been up much to ambulate, to the bathroom and back. Yael reports she just doesn't feel well. Fever was noted in the ED. She has been treated with Bactrim for recent UTI and is currently still taking it. She denies cough or chest pain. No headache or neck pain. Reports R shoulder pain after her fall, she reports this has hurt since her fall and the hospital report no fractures. She reports constipation and no bowel movement since she came home. She reports eating and drinking ok but her daughter reports she hasn't been drinking well enough. Denies urinary symptoms, gets UTIs frequently. In the ED leukocytosis noted at 17,510, BUN 19, Cr 1.4. UA negative and influenza negative. CXR obtained and negative as well. She was reports at 89-90% on arrival to the ED. Denies oxygen use at home. Should Xrays negative, but did show high riding humeral head, possible rotator cuff arthropathy. Head CT obtained and negative as well. She will be admitted observation for hypoxia, leukocytosis, dehydration and TED. Daughter reports she feels her mother is slightly confused as well, but this comes and goes recently. Diagnosis: Stroke: No - Discharge Data Discharge Date: 09/15/18 Discharge Disposition: Home, W Home Health Agency 06 Condition: Stable - Discharge Diagnosis/Problem(s) (1) Leukocytosis, unspecified SNOMED Code(s): 115164956, 390242235 ICD Code: D72.829 - ELEVATED WHITE BLOOD CELL COUNT, UNSPECIFIED Status: Resolved Current Visit: Yes (2) Dehydration SNOMED Code(s): 24644547 ICD Code: E86.0 - DEHYDRATION Status: Resolved Current Visit: Yes (3) TED (acute kidney injury) SNOMED Code(s): 32219485 ICD Code: N17.9 - ACUTE KIDNEY FAILURE, UNSPECIFIED Status: Resolved Current Visit: Yes (4) Physical deconditioning SNOMED Code(s): 58103845596443 ICD Code: R53.81 - OTHER MALAISE Status: Acute Current Visit: Yes (5) Shoulder pain SNOMED Code(s): 92621485 ICD Code: M25.519 - PAIN IN UNSPECIFIED SHOULDER Status: Acute Current Visit: Yes Qualifiers: Chronicity: acute Laterality: right Qualified Code(s): M25.511 - Pain in right shoulder (6) Decreased activities of daily living (ADL) SNOMED Code(s): 521922011 ICD Code: R68.89 - OTHER GENERAL SYMPTOMS AND SIGNS Status: Acute Current Visit: Yes (7) Hypoxia SNOMED Code(s): 104378673 ICD Code: R09.02 - HYPOXEMIA Status: Resolved Current Visit: Yes (8) HTN (hypertension) SNOMED Code(s): 19461963 ICD Code: I10 - ESSENTIAL (PRIMARY) HYPERTENSION Status: Chronic Current Visit: Yes Qualifiers: Hypertension type: essential hypertension Qualified Code(s): I10 - Essential (primary) hypertension (9) Transaminitis SNOMED Code(s): 969432518, 148789552 ICD Code: R74.0 - NONSPEC ELEV OF LEVELS OF TRANSAMNS & LACTIC ACID DEHYDRGNSE Status: Acute Current Visit: Yes - Patient Summary/Data Consults: Consultations 09/10/18 16:06 OT Evaluation and Treatment [CONS] Routine PT Evaluation and Treatment [CONS] Routine - Patient Instructions Diet: Heart Healthy Diet Activity: As Tolerated, Non Weight Bearing (R arm, able to move elbow and wrist. Splint for comfort), Rest and Relax Today Showering/Bathing: May Shower Notify Provider of: Fever, Increased Pain, Swelling and Redness, Drainage, Nausea and/or Vomiting - Discharge Plan *PRESCRIPTION DRUG MONITORING PROGRAM REVIEWED*: Not Applicable *COPY OF PRESCRIPTION DRUG MONITORING REPORT IN PATIENT LENA: Not Applicable Prescriptions/Med Rec: Metoprolol Succinate [Toprol XL] 12.5 mg PO DAILY #15 tab.er Home Medications: Home Meds Acetaminophen with Codeine [Acetaminophen-Cod #4] 1 tab PO Q4H PRN 09/10/18 [ History] Cyclobenzaprine [Flexeril] 5 mg PO TID PRN 09/10/18 [History] Gabapentin [Neurontin] 600 mg PO TID 09/10/18 [History] Levothyroxine [Levothroid] 137 mcg PO DAILY 09/10/18 [History] hydroCHLOROthiazide [Hydrochlorothiazide] 25 mg PO DAILY 09/10/18 [History] traZODone HCl [Trazodone HCl] 100 mg PO BEDTIME 09/10/18 [History] Metoprolol Succinate [Toprol XL] 12.5 mg PO DAILY #15 tab.er 09/15/18 [Rx] Oxygen Therapy Mode: Room Air Patient Handouts: Metoprolol tablets, Urinary Tract Infection, Adult Referrals: Thierno Wilson MD [Physician] - 09/23/18 8:30 am Jojo Sampson PA [Physician Downstairs Maid] - 09/18/18 10:00 am - Discharge Summary/Plan Comment DC Time >30 min.: No Discharge Summary/Plan Comment: Discharge Diagnoses: UTI- resolved, UC negative. Dehydration- resolved R shoulder injury, glenoid fx with joint effusion Transaminitis Hx SVT Yael was admitted secondary to dehydration and leukocytosis. She was treated with Rocephin due to recent UTI and daughter reports foul urine smell still. She was treated with Bactrim DS from [place], [place]. Daughter concerned she was more confused and not feeling well along with debility when she returned her to [place] from admission in [place], [place]. I spoke with her PCP, Dr Goode in [place], [place] regarding her use of Norpace CR. He agreed we should stop this due to urinary retention and gait in stability she was having. He reports he has tried discussing stopping it with her but she refuses. We initially changed her to Verapamil, then noted transaminitis. We stopped this and moved to Metoprolol XL 12.5 mg daily. Transaminitis is improving, Yael reports he vaguely remembers she may have been placed on Verapamil in the past and had this same issue, but she is unsure. She has tolerated Metoprolol well. Leukocytosis improved. UC negative for growth. R Shoulder CT was obtained due to swelling and pain. No erythema noted. CT revealed glenoid fracture and joint effusion. She has scheduled appointment with Ortho on Friday. They recommended immobilization and pain management. She will be discharged home today with Home Health. She is in need of skilled services to monitor new medication initiation. She will also be in need of nursing services manager and OT evaluation and treatment due to new R shoulder injury. She is non weight bearing as of now to R shoulder with split. She also has been falling at home and will need strengthening. She is home bound, unable to drive and is unable to leave residence without assistance of a car machine operator hop picker and a cane. [facility]. they are unsure when they will get her back to [place]. Appointment arranged with Dr Wilson. Once she is seen, he will follow with Home Health. - General Info Date of Service: 09/15/18 Admission Dx/Problem (Free Text: leukocytosis, UTI Subjective Update: Doing well today, eager for discharge reports Shoulder pain intermittently. No other concerns. No chest pain or SOB. Functional Status: Reports: Pain Controlled, Tolerating Diet, Ambulating (with assistance), Urinating - Review of Systems General: Reports: Weakness (generalized. ) HEENT: Reports: No Symptoms. Denies: Headaches, Visual Changes Pulmonary: Reports: No Symptoms. Denies: Shortness of Breath Cardiovascular: Reports: No Symptoms. Denies: Chest Pain Gastrointestinal: Reports: No Symptoms. Denies: Abdominal Pain, Nausea, Vomiting Genitourinary: Reports: No Symptoms. Denies: Dysuria, Frequency, Burning Musculoskeletal: Reports: Shoulder Pain (R intermittently.) Skin: Reports: No Symptoms Neurological: Reports: No Symptoms Psychiatric: Reports: No Symptoms - Patient Data Vitals - Most Recent: Last Vital Signs Temp 98.6 F 09/15/18 11:37 Pulse 79 09/15/18 11:37 Resp 16 09/15/18 11:37 BP 157/104 H 09/15/18 11:37 Pulse Ox 95 09/15/18 11:37 Weight - Most Recent: 68.039 kg I&O - Last 24 hours: Intake & Output 09/14/18 09/15/18 09/15/18 22:59 06:59 14:59 Intake Total 900 250 Output Total 700 300 Balance 200 -50 Lab Results - Last 24 hrs: Laboratory Results - last 24 hr 09/15/18 09/15/18 Range/Units 04:55 04:55 WBC 8.49 (4.0-11.0) K/uL RBC 4.24 L (4.30-5.90) M/uL Hgb 12.6 (12.0-16.0) g/dL Hct 37.1 (36.0-46.0) % MCV 87.5 (80.0-98.0) fL MCH 29.7 (27.0-32.0) pg MCHC 34.0 (31.0-37.0) g/dL RDW Std Deviation 44.8 (28.0-62.0) fl RDW Coeff of Natividad 14 (11.0-15.0) % Plt Count 341 (150-400) K/uL MPV 9.60 (7.40-12.00) fL Neut % (Auto) 70.0 (48.0-80.0) % Lymph % (Auto) 17.8 (16.0-40.0) % [place] % (Auto) 9.2 (0.0-15.0) % Eos % (Auto) 2.5 (0.0-7.0) % Baso % (Auto) 0.5 (0.0-1.5) % Neut # (Auto) 6.0 H (1.4-5.7) K/uL Lymph # (Auto) 1.5 (0.6-2.4) K/uL [place] # (Auto) 0.8 (0.0-0.8) K/uL Eos # (Auto) 0.2 (0.0-0.7) K/uL Baso # (Auto) 0.0 (0.0-0.1) K/uL Nucleated RBC % 0.0 /100WBC Nucleated RBCs # 0 K/uL Sodium 137 (136-145) mmol/L Potassium 4.5 (3.5-5.1) mmol/L Chloride 102 (98-107) mmol/L Carbon Dioxide 27.8 (21.0-32.0) mmol/L BUN 10 (7.0-18.0) mg/dL Creatinine 0.9 (0.6-1.0) mg/dL Est Cr Clr Drug Dosing 35.21 mL/min Estimated GFR (MDRD) > 60.0 ml/min Glucose 97 (74-106) mg/dL Calcium 9.3 (8.5-10.1) mg/dL Total Bilirubin 0.4 (0.2-1.0) mg/dL AST 121 H (15-37) IU/L ALT 184 H (14-63) IU/L Alkaline Phosphatase 133 H (46-116) U/L Total Protein 7.0 (6.4-8.2) g/dL Albumin 2.4 L (3.4-5.0) g/dL Globulin 4.6 H (2.6-4.0) g/dL Albumin/Globulin Ratio 0.5 L (0.9-1.6) LYNDA Results - Last 24 hrs: Microbiology 09/10/18 14:30 Aerobic Blood Culture - Preliminary Blood - Venous - Lab Draw NO GROWTH AFTER 4 DAYS Anaerobic Blood Culture - Final 09/10/18 13:38 Aerobic Blood Culture - Preliminary Blood - Venous NO GROWTH AFTER 4 DAYS Anaerobic Blood Culture - Final Med Orders - Current: Current Medications Acetaminophen/Codeine Phosphate (Tylenol With Codeine No.3 300mg/30mg) 1 tab PO Q4H PRN PRN Reason: Pain Last Admin: 09/14/18 20:25 Dose: 1 tab Bisacodyl (Dulcolax) 10 mg RECTAL DAILY PRN PRN Reason: Constipation Last Admin: 09/10/18 17:57 Dose: 10 mg Docusate Sodium (Colace) 100 mg PO BID PRN PRN Reason: Constipation Last Admin: 09/15/18 10:58 Dose: 100 mg Gabapentin (Neurontin) 600 mg PO DAILY [facility] Last Admin: 09/15/18 08:45 Dose: 600 mg Hydrochlorothiazide (Hydrochlorothiazide) 25 mg PO DAILY [facility] Last Admin: 09/15/18 08:44 Dose: 25 mg Ceftriaxone Sodium/Dextrose 1 (gm/ Premix) 50 mls @ 100 mls/hr IV Q24H [facility] Last Admin: 09/15/18 10:08 Dose: 100 mls/hr Levothyroxine Sodium (Levothyroxine) 112 mcg PO ACBREAKFAST [facility] Last Admin: 09/15/18 07:10 Dose: 112 mcg Levothyroxine Sodium (Levothyroxine) 25 mcg PO ACBREAKFAST [facility] Last Admin: 09/15/18 07:10 Dose: 25 mcg Metoprolol Succinate (Toprol Xl) 12.5 mg PO DAILY [facility] Last Admin: 09/15/18 08:45 Dose: 12.5 mg Polyethylene Glycol (Miralax) 17 gm PO BEDTIME PRN PRN Reason: Constipation Last Admin: 09/15/18 10:58 Dose: 17 gm Potassium Chloride (Klor-Con M20) 40 meq PO BID [facility] Last Admin: 09/15/18 08:44 Dose: 40 meq Trazodone HCl (Trazodone) 100 mg PO BEDTIME [facility] Last Admin: 09/14/18 20:25 Dose: 100 mg Discontinued Medications Acetaminophen (Tylenol) 650 mg PO NOW ONE Stop: 09/10/18 12:49 Last Admin: 09/10/18 13:06 Dose: 650 mg Acetaminophen (Tylenol) 650 mg PO Q4H PRN PRN Reason: Pain Last Admin: 09/11/18 12:08 Dose: 650 mg Sodium Chloride (Normal Saline) 1,000 mls @ 100 mls/hr IV ASDIRECTED [facility] Last Admin: 09/13/18 02:38 Dose: 100 mls/hr Levofloxacin/Dextrose 750 mg/ (Premix) 150 mls @ 100 mls/hr IV ONETIME ONE Stop: 09/10/18 15:03 Last Admin: 09/10/18 14:38 Dose: 100 mls/hr Levofloxacin/Dextrose 750 mg/ (Premix) 150 mls @ 100 mls/hr IV Q48H [facility] Ceftriaxone Sodium 1 gm/ (Sodium Chloride) 50 mls @ 100 mls/hr IV Q24H [facility] Last Admin: 09/13/18 09:14 Dose: 100 mls/hr Magnesium Sulfate 2 gm/ Premix 50 mls @ 25 mls/hr IV ONETIME ONE Stop: 09/12/18 12:13 Last Admin: 09/12/18 10:28 Dose: 25 mls/hr Magnesium Sulfate 2 gm/ Premix 50 mls @ 50 mls/hr IV ONETIME ONE Stop: 09/13/18 13:20 Last Admin: 09/13/18 12:41 Dose: 50 mls/hr Magnesium Sulfate 2 gm/ Premix 50 mls @ 50 mls/hr IV ONETIME ONE Stop: 09/14/18 11:26 Last Admin: 09/14/18 11:14 Dose: 50 mls/hr Morphine Sulfate (Morphine) 2 mg IVPUSH ONETIME ONE Stop: 09/10/18 11:03 Last Admin: 09/10/18 11:30 Dose: 2 mg Ondansetron HCl (Zofran) 4 mg IVPUSH Q4H PRN PRN Reason: Nausea Disopyramide Phosphate [Norpace] 150 Mg 1 each PO BID [facility] Last Admin: 09/10/18 22:15 Dose: Not Given Potassium Chloride (Klor-Con M20) 40 meq PO ONETIME ONE Stop: 09/13/18 12:22 Last Admin: 09/13/18 12:44 Dose: 40 meq Sodium Phosphate (Neutra-Phos) 250 mg PO QID [facility] Last Admin: 09/14/18 05:16 Dose: 250 mg Verapamil HCl (Calan) 40 mg PO Q8H [facility] Last Admin: 09/14/18 05:09 Dose: 40 mg - Exam General: Reports: Alert, Oriented, Cooperative, No Acute Distress Lungs: Reports: Clear to Auscultation, Normal Respiratory Effort Cardiovascular: Reports: Regular Rate, Regular Rhythm. Denies: No Murmurs, Tachycardia GI/Abdominal Exam: Normal Bowel Sounds, Soft, Non-Tender Back Exam: Reports: Normal Inspection, Full Range of Motion Extremities: Joint Swelling (R shouler, tenderness has improved. No erythema) Skin: Reports: Ecchymosis (to face continues to improve from previous fall 2 weeks ago) Neurological: Reports: No New Focal Deficit Psy/Mental Status: Reports: Alert, Normal Affect, Normal Mood
== END 2018-09-15 17:45 | disposition home health service (06) | DRG 641 ==
LOC: MW.ED 10:56 → MW.MS 13:59 → OBSVTOIN 09-12 20:02
PROVIDERS: ADMIT Internal Medicine; ATTEND Internal Medicine
DX: E86.0 Dehydration (principal); R53.1 Weakness; M25.511 Pain in right shoulder; N17.9 Acute kidney failure, unspecified; N39.0 Urinary tract infection, site not specified; D72.829 Elevated white blood cell count, unspecified; I47.1 Supraventricular tachycardia; M85.89 Other specified disorders of bone density and structure, multiple sites; S42.141A Displaced fracture of glenoid cavity of scapula, right shoulder, initial encounter for closed fracture; S46.011A Strain of muscle(s) and tendon(s) of the rotator cuff of right shoulder, initial encounter; W19.XXXA Unspecified fall, initial encounter; R09.02 Hypoxemia; E03.9 Hypothyroidism, unspecified; I10 Essential (primary) hypertension; G89.29 Other chronic pain; K59.00 Constipation, unspecified; R41.0 Disorientation, unspecified; M79.7 Fibromyalgia; R33.0 Drug induced retention of urine; T46.2X5A Adverse effect of other antidysrhythmic drugs, initial encounter; M25.411 Effusion, right shoulder; T46.1X5A Adverse effect of calcium-channel blockers, initial encounter; R74.0 Nonspecific elevation of levels of transaminase and lactic acid dehydrogenase [LDH]; Z88.8 Allergy status to other drugs, medicaments and biological substances; Z87.440 Personal history of urinary (tract) infections; Z79.2 Long term (current) use of antibiotics; Z90.710 Acquired absence of both cervix and uterus; Z96.659 Presence of unspecified artificial knee joint; Z79.899 Other long term (current) drug therapy; Z98.1 Arthrodesis status; Z91.81 History of falling
CPT/HCPCS: 36415 ×3; 70450; 71045; 72100; 73030; 73200; 80048 ×2; 80053; 81003; 83735; 84100; 84443; 84484; 85025 ×3; 87040 ×2; 87086; 87804 ×2; 93005; 96361; 96365; 96375; 97162; 97165; 97530 ×3; 99285; A9270 ×22; J0696; J1956; J2270; J3475; J7040 ×6; J7050; 76705; 76705-26; 80074; 96376; 97110-GO; 99284; G0378

== ENCOUNTER 2018-09-17 22:48 | Inpatient (IN) | payer MEDICARE ==
--- NOTE | 2018-09-17 23:05 | EDM.PDOC ---
ED HPI GENERAL MEDICAL PROBLEM - General Chief Complaint: Neuro Symptoms/Deficits Stated Complaint: STROKE CODE Time Seen by Provider: 09/17/18 22:58 - History of Present Illness INITIAL COMMENTS - FREE TEXT/NARRATIVE: HISTORY AND PHYSICAL: History of present illness: Patient is an 83-year-old white female past medical history significant for hypertension frequent falls who was just discharged on September 15 she returns tonight with frequent falls and generalized weakness again. She denies chest pain nausea vomiting fever chills or other concern Review of systems: As per history of present illness and below otherwise all systems reviewed and negative. Past medical history: As per history of present illness and as reviewed below otherwise noncontributory. Surgical history: As per history of present illness and as reviewed below otherwise noncontributory. Social history: No reported history of drug or alcohol abuse. Family history: As per history of present illness and as reviewed below otherwise noncontributory. Physical exam: HEENT: normocephalic, pupils reactive, negative for conjunctival pallor or scleral icterus, mucous membranes moist, throat clear, neck supple, nontender, trachea midline. Lungs: Clear to auscultation, breath sounds equal bilaterally, chest nontender. Heart: S1S2, regular, negative for clicks, rubs, or JVD. Abdomen: Soft, nondistended, nontender. Negative for masses or hepatosplenomegaly. Negative for costovertebral tenderness. Pelvis: Stable nontender. Genitourinary: Deferred. Rectal: Deferred. Extremities: negative for cords or calf pain. Neurovascular unremarkable. Neuro: Awake, somnolent follows commands with all extremities limited but grossly nonfocal exam Diagnostics: CBC CMP troponin PT/INR chest x-ray EKG CT brain UA x-ray pelvis Therapeutics: IV O2 monitor Impression: #1 frequent falls #2 generalized weakness Definitive disposition and diagnosis as appropriate pending reevaluation and review of above. - Related Data Allergies Allergy/AdvReac Type Severity Reaction Status Date / Time ibuprofen [From Motrin] Allergy Cannot Verified 09/17/18 22:58 Remember NSAIDS (Non-Steroidal Allergy Cannot Verified 09/17/18 22:58 Anti-Inflamma Remember Home Meds: Home Meds Acetaminophen with Codeine [Acetaminophen-Cod #4] 1 tab PO Q4H PRN 09/10/18 [ History] Cyclobenzaprine [Flexeril] 5 mg PO TID PRN 09/10/18 [History] Gabapentin [Neurontin] 600 mg PO TID 09/10/18 [History] Levothyroxine [Levothroid] 137 mcg PO DAILY 09/10/18 [History] hydroCHLOROthiazide [Hydrochlorothiazide] 25 mg PO DAILY 09/10/18 [History] traZODone HCl [Trazodone HCl] 100 mg PO BEDTIME 09/10/18 [History] Metoprolol Succinate [Toprol XL] 12.5 mg PO DAILY #15 tab.er 09/15/18 [Rx] Past Medical History Cardiovascular History: Reports: Arrhythmia, Hypertension Respiratory History: Reports: None Gastrointestinal History: Reports: None Genitourinary History: Reports: UTI, Recurrent [employer]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: Musculoskeletal History: Reports: Back Pain, Chronic, Fibromyalgia, Other (See Below) Other Musculoskeletal History: Weakness Neurological History: Reports: Other (See Below) Other Neuro History: head bleed 09/02/18 Endocrine/Metabolic History: Reports: Hypothyroidism Oncologic (Cancer) History: Reports: Other (See Below) Other Oncologic History: Kidney - Infectious Disease History Infectious Disease History: Reports: Chicken Pox, Measles, Mumps - Past Surgical History GI Surgical History: Reports: Appendectomy Female Surgical History: Reports: Hysterectomy Neurological Surgical History: Reports: Lumbar Spine, Thoracic Spine Musculoskeletal Surgical History: Reports: Knee Replacement Social & Family History - Tobacco Use Smoking Status *Q: Never Smoker - Caffeine Use Caffeine Use: Reports: Coffee, Energy Drinks, Soda - Recreational Drug Use Recreational Drug Use: No - Living Situation & Occupation Living situation: Reports: with Family Occupation: Retired ED ROS GENERAL - Review of Systems Review Of Systems: ROS reveals no pertinent complaints other than HPI. ED EXAM, GENERAL - Physical Exam Exam: See Below (See dictation) Course - Vital Signs Last Recorded V/S: Last Vital Signs Temp 37.4 C 09/17/18 22:48 Pulse 80 09/17/18 23:30 Resp 18 09/17/18 23:10 BP 127/76 09/17/18 23:30 Pulse Ox 95 09/17/18 23:30 - Orders/Labs/Meds Orders: Active Orders 24 hr Category Date Time Status EKG 12 Lead [EKG Documentation Completion] [RC] STAT Care 09/17/18 22:59 Active UA RFX LYNDA AND CULT IF INDIC [URIN] Stat Lab 09/17/18 23:06 Ordered Labs: Laboratory Tests 09/17/18 09/17/18 09/17/18 Range/Units 22:45 22:45 22:45 WBC 13.00 H (4.0-11.0) K/uL RBC 4.26 L (4.30-5.90) M/uL Hgb 12.7 (12.0-16.0) g/dL Hct 37.1 (36.0-46.0) % MCV 87.1 (80.0-98.0) fL MCH 29.8 (27.0-32.0) pg MCHC 34.2 (31.0-37.0) g/dL RDW Std Deviation 43.7 (28.0-62.0) fl RDW Coeff of [place]ivid[place] 14 (11.0-15.0) % Plt Count 371 (150-400) K/uL MPV 8.80 (7.40-12.00) fL Neut % (Auto) 84.0 H (48.0-80.0) % Lymph % (Auto) 6.8 L (16.0-40.0) % [place] % (Auto) 8.5 (0.0-15.0) % Eos % (Auto) 0.5 (0.0-7.0) % Baso % (Auto) 0.2 (0.0-1.5) % Neut # (Auto) 10.9 H (1.4-5.7) K/uL Lymph # (Auto) 0.9 (0.6-2.4) K/uL [place] # (Auto) 1.1 H (0.0-0.8) K/uL Eos # (Auto) 0.1 (0.0-0.7) K/uL Baso # (Auto) 0.0 (0.0-0.1) K/uL Nucleated RBC % 0.0 /100WBC Nucleated RBCs # 0 K/uL INR 1.03 Lactate (0.20-2.00) mmol/L Sodium 134 L (136-145) mmol/L Potassium 3.4 L (3.5-5.1) mmol/L Chloride 96 L (98-107) mmol/L Carbon Dioxide 27.7 (21.0-32.0) mmol/L BUN 20 H (7.0-18.0) mg/dL Creatinine 0.9 (0.6-1.0) mg/dL Est Cr Clr Drug Dosing TNP Estimated GFR (MDRD) > 60.0 ml/min Glucose 125 H (74-106) mg/dL Calcium 9.1 (8.5-10.1) mg/dL Total Bilirubin 0.4 (0.2-1.0) mg/dL AST 61 H (15-37) IU/L ALT 122 H (14-63) IU/L Alkaline Phosphatase 116 (46-116) U/L Troponin I < 0.050 (0.000-0.056) ng/mL Total Protein 7.2 (6.4-8.2) g/dL Albumin 2.7 L (3.4-5.0) g/dL Globulin 4.5 H (2.6-4.0) g/dL Albumin/Globulin Ratio 0.6 L (0.9-1.6) 09/17/18 Range/Units 22:45 WBC (4.0-11.0) K/uL RBC (4.30-5.90) M/uL Hgb (12.0-16.0) g/dL Hct (36.0-46.0) % MCV (80.0-98.0) fL MCH (27.0-32.0) pg MCHC (31.0-37.0) g/dL RDW Std Deviation (28.0-62.0) fl RDW Coeff of [place] (11.0-15.0) % Plt Count (150-400) K/uL MPV (7.40-12.00) fL Neut % (Auto) (48.0-80.0) % Lymph % (Auto) (16.0-40.0) % [place] % (Auto) (0.0-15.0) % Eos % (Auto) (0.0-7.0) % Baso % (Auto) (0.0-1.5) % Neut # (Auto) (1.4-5.7) K/uL Lymph # (Auto) (0.6-2.4) K/uL [place] # (Auto) (0.0-0.8) K/uL Eos # (Auto) (0.0-0.7) K/uL Baso # (Auto) (0.0-0.1) K/uL Nucleated RBC % /100WBC Nucleated RBCs # K/uL INR Lactate 0.7 (0.20-2.00) mmol/L Sodium (136-145) mmol/L Potassium (3.5-5.1) mmol/L Chloride (98-107) mmol/L Carbon Dioxide (21.0-32.0) mmol/L BUN (7.0-18.0) mg/dL Creatinine (0.6-1.0) mg/dL Est Cr Clr Drug Dosing Estimated GFR (MDRD) ml/min Glucose (74-106) mg/dL Calcium (8.5-10.1) mg/dL Total Bilirubin (0.2-1.0) mg/dL AST (15-37) IU/L ALT (14-63) IU/L Alkaline Phosphatase (46-116) U/L Troponin I (0.000-0.056) ng/mL Total Protein (6.4-8.2) g/dL Albumin (3.4-5.0) g/dL Globulin (2.6-4.0) g/dL Albumin/Globulin Ratio (0.9-1.6) Departure - Departure Time of Disposition: 00:22 Disposition: Refer to Observation Condition: Fair Clinical Impression: Frequent falls, Weakness - Discharge Information - My Orders Last 24 Hours: My Active Orders 09/17/18 22:59 EKG 12 Lead [EKG Documentation Completion] [RC] STAT 09/17/18 23:06 UA RFX LYNDA AND CULT IF INDIC [URIN] Stat - Assessment/Plan Last 24 Hours: My Active Orders 09/17/18 22:59 EKG 12 Lead [EKG Documentation Completion] [RC] STAT 09/17/18 23:06 UA RFX LYNDA AND CULT IF INDIC [URIN] Stat
--- NOTE | 2018-09-17 23:18 | CT ---
INDICATION: Stroke protocol TECHNIQUE: CT head without contrast. COMPARISON: 09/10/2018 FINDINGS: Age related cortical atrophy and associated ventriculomegaly are again seen, stable. There is no mass effect or midline shift. White matter hypodensities are suggestive of chronic small vessel ischemic changes. There is no loss of brizuela-white differentiation. There is no evidence of an acute intracranial hemorrhage. No acute calvarial fracture is seen. There are foci of ethmoid sinus mucosal thickening. The mastoid air cells are clear. The visualized orbits are stable. IMPRESSION: Stable appearance of the brain. No evidence of an acute intracranial hemorrhage, mass effect or loss of brizuela-white differentiation. Atrophy and chronic small vessel ischemic changes. Dictated by Antonio Norwood MD @ 09/17/2018 11:18:17 PM Please note that all CT scans at this facility use dose modulation, iterative reconstruction, and/or weight-based dosing when appropriate to reduce radiation dose to as low as reasonably achievable. Dictated by: Antonio Norwood MD @ 09/17/2018 23:18:21 (Electronically Signed)
[2018-09-17 23:27] LABS: CHLORIDE,CL 96 mmol/L (98-107); SODIUM,NA 134 mmol/L (136-145)
--- NOTE | 2018-09-18 | CR ---
INDICATION: Fall TECHNIQUE: Chest 1 view COMPARISON: Chest x-ray 09/10/2018 FINDINGS: Cardiovascular and mediastinum: Normal heart size with aortic tortuosity and atherosclerotic calcification. Lungs and pleural spaces: Lungs are clear. No sign of infiltrate or mass. No sign of pleural effusion. No pneumothorax. Bones and soft tissues: Status post cervical and thoracolumbar surgery. Bilateral rotator cuff disease. Left glenohumeral osteoarthritis. IMPRESSION: No acute consolidation or significant interval change compared to the prior exam. Dictated by Fan Jacobsen MD @ Sep 17 2018 11:44PM Signed by Dr. Fan Jacobsen @ Sep 17 2018 11:58PM
--- NOTE | 2018-09-18 00:05 | CR ---
Indication: Fall Technique: Pelvis 1 view Comparison: None Findings: Bones: No acute fracture. Prior lumbosacral surgery. Joint spaces: No dislocation. Soft tissues: Multiple calcifications overlying the pelvis, likely injection granulomata. Impression: No acute fracture. Dictated by Fan Jacobsen MD @ Sep 18 2018 12:02AM Signed by Dr. Fan Jacobsen @ Sep 18 2018 12:03AM
[2018-09-18] MEDS ORDERED: Sodium Chloride 0.9% 2.5 ML Syringe FLUSH PRN ×2 (01:34→11:57)
[2018-09-18] MEDS ORDERED: Sodium Chloride 0.9% 10 ML Syringe FLUSH PRN ×2 (01:34→11:57)
[2018-09-18] MEDS ORDERED: [UNRECOGNIZED DRUG - OTHER] PO PRN (01:35)
[2018-09-18] MEDS ORDERED: ACETAMINOPHEN WITH CODEINE PO PRN (01:35)
[2018-09-18 05:54] LABS: CHLORIDE,CL 97 mmol/L (98-107); SODIUM,NA 134 mmol/L (136-145)
[2018-09-18] MEDS: Acetaminophen/Codeine 300-30 MG Tab PO PRN (10:57)
--- NOTE | 2018-09-18 12:07 | PCM.HP ---
H&P History of Present Illness - General Date of Service: 09/18/18 Admit Problem/Dx: Admission Diagnosis/Problem Admission Diagnosis/Problem Weakness - History of Present Illness Initial Comments - Free Text/Narative: His 83-year-old female who has been admitted secondary to falls and weakness. Patient was just discharged on 09/15 from our service. She was noted to have a right glenoid fracture with joint effusion. Patient was actually scheduled to have an appointment with orthopedics today for further assessment. However due to her falls and weakness she re-presented to the emergency department and was subsequently admitted to the floor. Patient was noted to have a mildly elevated leukocytosis. On her last admission she was being treated for a urinary tract infection she did however have a clean urine analysis during that time. A repeat urine analysis has been done and results are awaiting. After speaking with patient and family it is likely the patient would like to be admitted to [facility] and subsequently moved over to [facility] at a assisted living facility where she has a lot of family and friends. Bilateral Arm Pain Score (Numeric/FACES): 8 - Related Data Allergies/Adverse Reactions: Allergies Allergy/AdvReac Type Severity Reaction Status Date / Time ibuprofen [From Motrin] Allergy Cannot Verified 09/17/18 22:58 Remember NSAIDS (Non-Steroidal Allergy Cannot Verified 09/17/18 22:58 Anti-Inflamma Remember Home Medications: Home Meds Acetaminophen with Codeine [Acetaminophen-Cod #4] 1 tab PO Q4H PRN 09/10/18 [ History] Cyclobenzaprine [Flexeril] 5 mg PO TID PRN 09/10/18 [History] Gabapentin [Neurontin] 600 mg PO TID 09/10/18 [History] Levothyroxine [Levothroid] 137 mcg PO DAILY 09/10/18 [History] hydroCHLOROthiazide [Hydrochlorothiazide] 25 mg PO DAILY 09/10/18 [History] traZODone HCl [Trazodone HCl] 100 mg PO BEDTIME 09/10/18 [History] Metoprolol Succinate [Toprol XL] 12.5 mg PO DAILY #15 tab.er 09/15/18 [Rx] Past Medical History Cardiovascular History: Reports: Arrhythmia, Hypertension Respiratory History: Reports: None Gastrointestinal History: Reports: None Genitourinary History: Reports: UTI, Recurrent 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: Musculoskeletal History: Reports: Back Pain, Chronic, Fibromyalgia, Other (See Below) Other Musculoskeletal History: Weakness Neurological History: Reports: Other (See Below) Other Neuro History: head bleed 09/02/18 Endocrine/Metabolic History: Reports: Hypothyroidism Oncologic (Cancer) History: Reports: Other (See Below) Other Oncologic History: Kidney - Infectious Disease History Infectious Disease History: Reports: Chicken Pox, Measles, Mumps - Past Surgical History GI Surgical History: Reports: Appendectomy Female Surgical History: Reports: Hysterectomy Neurological Surgical History: Reports: Lumbar Spine, Thoracic Spine Musculoskeletal Surgical History: Reports: Knee Replacement Social & Family History - Family History Family Medical History: Noncontributory - Tobacco Use Smoking Status *Q: Never Smoker - Caffeine Use Caffeine Use: Reports: None - Recreational Drug Use Recreational Drug Use: No - Living Situation & Occupation Living situation: Reports: with Family Occupation: Retired H&P Review of Systems - Review of Systems: Review Of Systems: ROS reveals no pertinent complaints other than HPI. Exam - Exam Exam: See Below - Vital Signs Vital Signs: Last Vital Signs Temp 36.6 C 09/18/18 07:42 Pulse 79 09/18/18 07:42 Resp 16 09/18/18 07:42 BP 139/74 09/18/18 07:42 Pulse Ox 96 09/18/18 07:42 Weight: 65.7 kg - Exam General: Alert, Oriented, Cooperative, Mild Distress Lungs: Clear to Auscultation, Normal Respiratory Effort Cardiovascular: Regular Rate, Regular Rhythm Extremities: Other (Bilateral shoulder discomfort with right shoulder glenoid fracture) - Patient Data Lab Results Last 24 hrs: Laboratory Results - last 24 hr 09/17/18 09/17/18 09/17/18 Range/Units 22:45 22:45 22:45 WBC 13.00 H (4.0-11.0) K/uL RBC 4.26 L (4.30-5.90) M/uL Hgb 12.7 (12.0-16.0) g/dL Hct 37.1 (36.0-46.0) % MCV 87.1 (80.0-98.0) fL MCH 29.8 (27.0-32.0) pg MCHC 34.2 (31.0-37.0) g/dL RDW Std Deviation 43.7 (28.0-62.0) fl RDW Coeff of [place] 14 (11.0-15.0) % Plt Count 371 (150-400) K/uL MPV 8.80 (7.40-12.00) fL Neut % (Auto) 84.0 H (48.0-80.0) % Lymph % (Auto) 6.8 L (16.0-40.0) % [place] % (Auto) 8.5 (0.0-15.0) % Eos % (Auto) 0.5 (0.0-7.0) % Baso % (Auto) 0.2 (0.0-1.5) % Neut # (Auto) 10.9 H (1.4-5.7) K/uL Lymph # (Auto) 0.9 (0.6-2.4) K/uL [place] # (Auto) 1.1 H (0.0-0.8) K/uL Eos # (Auto) 0.1 (0.0-0.7) K/uL Baso # (Auto) 0.0 (0.0-0.1) K/uL Nucleated RBC % 0.0 /100WBC Nucleated RBCs # 0 K/uL INR 1.03 Lactate (0.20-2.00) mmol/L Sodium 134 L (136-145) mmol/L Potassium 3.4 L (3.5-5.1) mmol/L Chloride 96 L (98-107) mmol/L Carbon Dioxide 27.7 (21.0-32.0) mmol/L BUN 20 H (7.0-18.0) mg/dL Creatinine 0.9 (0.6-1.0) mg/dL Est Cr Clr Drug Dosing TNP Estimated GFR (MDRD) > 60.0 ml/min Glucose 125 H (74-106) mg/dL Calcium 9.1 (8.5-10.1) mg/dL Total Bilirubin 0.4 (0.2-1.0) mg/dL AST 61 H (15-37) IU/L ALT 122 H (14-63) IU/L Alkaline Phosphatase 116 (46-116) U/L Troponin I < 0.050 (0.000-0.056) ng/mL Total Protein 7.2 (6.4-8.2) g/dL Albumin 2.7 L (3.4-5.0) g/dL Globulin 4.5 H (2.6-4.0) g/dL Albumin/Globulin Ratio 0.6 L (0.9-1.6) 09/17/18 09/18/18 09/18/18 Range/Units 22:45 05:15 05:15 WBC 12.25 H (4.0-11.0) K/uL RBC 4.01 L (4.30-5.90) M/uL Hgb 11.8 L (12.0-16.0) g/dL Hct 35.3 L (36.0-46.0) % MCV 88.0 (80.0-98.0) fL MCH 29.4 (27.0-32.0) pg MCHC 33.4 (31.0-37.0) g/dL RDW Std Deviation 44.5 (28.0-62.0) fl RDW Coeff of [place] 14 (11.0-15.0) % Plt Count 376 (150-400) K/uL MPV 9.00 (7.40-12.00) fL Neut % (Auto) 73.8 (48.0-80.0) % Lymph % (Auto) 13.5 L (16.0-40.0) % [place] % (Auto) 11.8 (0.0-15.0) % Eos % (Auto) 0.7 (0.0-7.0) % Baso % (Auto) 0.2 (0.0-1.5) % Neut # (Auto) 9.1 H (1.4-5.7) K/uL Lymph # (Auto) 1.7 (0.6-2.4) K/uL [place] # (Auto) 1.4 H (0.0-0.8) K/uL Eos # (Auto) 0.1 (0.0-0.7) K/uL Baso # (Auto) 0.0 (0.0-0.1) K/uL Nucleated RBC % 0.0 /100WBC Nucleated RBCs # 0 K/uL INR Lactate 0.7 (0.20-2.00) mmol/L Sodium 134 L (136-145) mmol/L Potassium 3.4 L (3.5-5.1) mmol/L Chloride 97 L (98-107) mmol/L Carbon Dioxide 29.4 (21.0-32.0) mmol/L BUN 18 (7.0-18.0) mg/dL Creatinine 0.8 (0.6-1.0) mg/dL Est Cr Clr Drug Dosing TNP Estimated GFR (MDRD) > 60.0 ml/min Glucose 105 (74-106) mg/dL Calcium 9.2 (8.5-10.1) mg/dL Total Bilirubin (0.2-1.0) mg/dL AST (15-37) IU/L ALT (14-63) IU/L Alkaline Phosphatase (46-116) U/L Troponin I (0.000-0.056) ng/mL Total Protein (6.4-8.2) g/dL Albumin (3.4-5.0) g/dL Globulin (2.6-4.0) g/dL Albumin/Globulin Ratio (0.9-1.6) Result Diagrams: 09/18/18 05:15 09/18/18 05:15 Problem List Initiated/Reviewed/Updated: Yes Orders Last 24hrs: Active Orders 24 hr Category Date Time Status Patient Status [ADT] Stat ADT 09/17/18 23:33 Active Antiembolic Devices [RC] PER UNIT ROUTINE Care 09/18/18 11:59 Ordered EKG 12 Lead [EKG Documentation Completion] [RC] STAT Care 09/17/18 22:59 Active Height and Weight [RC] UPON Care 09/18/18 11:57 Ordered Intake and Output [RC] QSHIFT Care 09/18/18 11:57 Ordered Oxygen Therapy [RC] PRN Care 09/18/18 11:57 Ordered Telemetry Monitoring [Cardiac Monitoring] [RC] Q8H Care 09/18/18 00:25 Active Up With Assistance [RC] ASDIRECTED Care 09/18/18 11:57 Ordered VTE/DVT Education [RC] PER UNIT ROUTINE Care 09/18/18 11:57 Ordered Vital Signs [RC] Q4H Care 09/18/18 11:57 Ordered Regular Diet [DIET] Diet 09/18/18 Breakfast Active C-REACTIVE PROTEIN [CHEM] Routine Lab 09/18/18 11:57 Ordered CBC WITH AUTO DIFF [HEME] AM Lab 09/19/18 05:11 Ordered COMPREHENSIVE METABOLIC PN,CMP [CHEM] AM Lab 09/19/18 05:11 Ordered UA RFX LYNDA AND CULT IF INDIC [URIN] Stat Lab 09/17/18 23:06 Ordered UA W/MICROSCOPIC [URIN] Routine Lab 09/18/18 11:57 Ordered Acetaminophen/Codeine [Tylenol with Codeine No.3 300MG/ Med 09/18/18 10:29 Active 30MG] 1 tab PO Q4H PRN Sodium Chloride 0.9% [Saline Flush] Med 09/18/18 01:34 Active 10 ml FLUSH ASDIRECTED PRN Sodium Chloride 0.9% [Saline Flush] Med 09/18/18 11:57 Ordered 10 ml FLUSH ASDIRECTED PRN Sodium Chloride 0.9% [Saline Flush] Med 09/18/18 01:34 Active 2.5 ml FLUSH ASDIRECTED PRN Sodium Chloride 0.9% [Saline Flush] Med 09/18/18 11:57 Ordered 2.5 ml FLUSH ASDIRECTED PRN traZODone Med 09/18/18 21:00 Active 100 mg PO BEDTIME Peripheral IV Insertion Adult [OM.PC] Routine Oth 09/18/18 11:57 Ordered Saline Lock Insert [OM.PC] Routine Oth 09/18/18 01:34 Ordered Saline Lock Insert [OM.PC] Routine Oth 09/18/18 11:57 Ordered Sequential Compression Device [OM.PC] Per Unit Routine Oth 09/18/18 11:57 Ordered Medication Orders Acetaminophen/Codeine Phosphate (Tylenol With Codeine No.3 300mg/30mg) 1 tab PO Q4H PRN PRN Reason: Pain Last Admin: 09/18/18 10:57 Dose: 1 tab Sodium Chloride (Saline Flush) 10 ml FLUSH ASDIRECTED PRN PRN Reason: Keep Vein Open Sodium Chloride (Saline Flush) 2.5 ml FLUSH ASDIRECTED PRN PRN Reason: Keep Vein Open Sodium Chloride (Saline Flush) 10 ml FLUSH ASDIRECTED PRN PRN Reason: Keep Vein Open Sodium Chloride (Saline Flush) 2.5 ml FLUSH ASDIRECTED PRN PRN Reason: Keep Vein Open Trazodone HCl (Trazodone) 100 mg PO BEDTIME [facility] Assessment/Plan Comment:: 83-year-old female being admitted secondary to weakness and falls with a recent significant history of a right shoulder glenoid fracture with joint effusion and leukocytosis. -For the patient's leukocytosis shall look for source of infection, awaiting urinalysis, chest x-ray was clear in the ED, she'll also touch base with orthopedic surgery in regards to seeing if the source of infection is the right shoulder. -Patient will be admitted and patient, physical therapy shall be consulted, assess her shoulder made for [facility] with case management. -Due to the brain bleed history per family shall hold off on Lovenox DVT prophylaxis and just do SCDs. -Continue with pain management with Tylenol 3
[2018-09-18] MEDS: traZODone 50 MG Tab PO SCH (20:47)
[2018-09-18] MEDS ORDERED: Ondansetron 4 MG/2 ML SDV IVPUSH PRN (23:14)
[2018-09-19 07:26] LABS: CHLORIDE,CL 97 mmol/L (98-107); SODIUM,NA 134 mmol/L (136-145)
[2018-09-19] MEDS: Acetaminophen/Codeine 300-30 MG Tab PO PRN ×3 (08:51→20:38)
--- NOTE | 2018-09-19 12:29 | PCM.PN ---
- General Info Date of Service: 09/19/18 Subjective Update: stable - Patient Data Vitals - Most Recent: Last Vital Signs Temp 36.4 C 09/19/18 07:00 Pulse 77 09/19/18 07:00 Resp 16 09/19/18 07:00 BP 137/77 09/19/18 07:00 Pulse Ox 93 L 09/19/18 11:57 Weight - Most Recent: 65.7 kg I&O - Last 24 Hours: Intake & Output 09/18/18 09/19/18 09/19/18 22:59 06:59 14:59 Intake Total 580 150 Output Total 200 100 Balance 380 50 Lab Results Last 24 Hours: Laboratory Results - last 24 hr 09/18/18 09/18/18 09/18/18 Range/Units 12:12 12:12 14:20 WBC (4.0-11.0) K/uL RBC (4.30-5.90) M/uL Hgb (12.0-16.0) g/dL Hct (36.0-46.0) % MCV (80.0-98.0) fL MCH (27.0-32.0) pg MCHC (31.0-37.0) g/dL RDW Std Deviation (28.0-62.0) fl RDW Coeff of [place] (11.0-15.0) % Plt Count (150-400) K/uL MPV (7.40-12.00) fL Neut % (Auto) (48.0-80.0) % Lymph % (Auto) (16.0-40.0) % Drew % (Auto) (0.0-15.0) % Eos % (Auto) (0.0-7.0) % Baso % (Auto) (0.0-1.5) % Neut # (Auto) (1.4-5.7) K/uL Lymph # (Auto) (0.6-2.4) K/uL Drew # (Auto) (0.0-0.8) K/uL Eos # (Auto) (0.0-0.7) K/uL Baso # (Auto) (0.0-0.1) K/uL Nucleated RBC % /100WBC Nucleated RBCs # K/uL ESR 70 H (0-29) mm/hr Sodium (136-145) mmol/L Potassium (3.5-5.1) mmol/L Chloride (98-107) mmol/L Carbon Dioxide (21.0-32.0) mmol/L BUN (7.0-18.0) mg/dL Creatinine (0.6-1.0) mg/dL Est Cr Clr Drug Dosing mL/min Estimated GFR (MDRD) ml/min Glucose (74-106) mg/dL Calcium (8.5-10.1) mg/dL Total Bilirubin (0.2-1.0) mg/dL AST (15-37) IU/L ALT (14-63) IU/L Alkaline Phosphatase (46-116) U/L C-Reactive Protein 14.70 H (0.00-0.90) mg/dL Total Protein (6.4-8.2) g/dL Albumin (3.4-5.0) g/dL Globulin (2.6-4.0) g/dL Albumin/Globulin Ratio (0.9-1.6) Urine Color YELLOW Urine Appearance CLEAR Urine pH 6.0 (5.0-8.0) Ur Specific [place] 1.025 (1.001-1.035) Urine Protein NEGATIVE (NEGATIVE) mg/dL Urine Glucose (UA) NEGATIVE (NEGATIVE) mg/dL Urine Ketones NEGATIVE (NEGATIVE) mg/dL Urine Occult Blood NEGATIVE (NEGATIVE) Urine Nitrite NEGATIVE (NEGATIVE) Urine Bilirubin NEGATIVE (NEGATIVE) Urine Urobilinogen 0.2 (<2.0) EU/dL Ur Leukocyte Esterase NEGATIVE (NEGATIVE) 09/19/18 09/19/18 Range/Units 06:36 06:36 WBC 12.34 H (4.0-11.0) K/uL RBC 3.89 L (4.30-5.90) M/uL Hgb 11.4 L (12.0-16.0) g/dL Hct 34.1 L (36.0-46.0) % MCV 87.7 (80.0-98.0) fL MCH 29.3 (27.0-32.0) pg MCHC 33.4 (31.0-37.0) g/dL RDW Std Deviation 43.7 (28.0-62.0) fl RDW Coeff of [place] 14 (11.0-15.0) % Plt Count 363 (150-400) K/uL MPV 8.70 (7.40-12.00) fL Neut % (Auto) 77.6 (48.0-80.0) % Lymph % (Auto) 10.0 L (16.0-40.0) % Drew % (Auto) 12.0 (0.0-15.0) % Eos % (Auto) 0.2 (0.0-7.0) % Baso % (Auto) 0.2 (0.0-1.5) % Neut # (Auto) 9.6 H (1.4-5.7) K/uL Lymph # (Auto) 1.2 (0.6-2.4) K/uL Drew # (Auto) 1.5 H (0.0-0.8) K/uL Eos # (Auto) 0.0 (0.0-0.7) K/uL Baso # (Auto) 0.0 (0.0-0.1) K/uL Nucleated RBC % 0.0 /100WBC Nucleated RBCs # 0 K/uL ESR (0-29) mm/hr Sodium 134 L (136-145) mmol/L Potassium 3.2 L (3.5-5.1) mmol/L Chloride 97 L (98-107) mmol/L Carbon Dioxide 29.6 (21.0-32.0) mmol/L BUN 17 (7.0-18.0) mg/dL Creatinine 0.9 (0.6-1.0) mg/dL Est Cr Clr Drug Dosing 35.21 mL/min Estimated GFR (MDRD) > 60.0 ml/min Glucose 111 H (74-106) mg/dL Calcium 9.2 (8.5-10.1) mg/dL Total Bilirubin 0.4 (0.2-1.0) mg/dL AST 50 H (15-37) IU/L ALT 93 H (14-63) IU/L Alkaline Phosphatase 112 (46-116) U/L C-Reactive Protein (0.00-0.90) mg/dL Total Protein 6.8 (6.4-8.2) g/dL Albumin 2.2 L (3.4-5.0) g/dL Globulin 4.6 H (2.6-4.0) g/dL Albumin/Globulin Ratio 0.5 L (0.9-1.6) Urine Color Urine Appearance Urine pH (5.0-8.0) Ur Specific [place] (1.001-1.035) Urine Protein (NEGATIVE) mg/dL Urine Glucose (UA) (NEGATIVE) mg/dL Urine Ketones (NEGATIVE) mg/dL Urine Occult Blood (NEGATIVE) Urine Nitrite (NEGATIVE) Urine Bilirubin (NEGATIVE) Urine Urobilinogen (<2.0) EU/dL Ur Leukocyte Esterase (NEGATIVE) [place] Results Last 24 Hours: Microbiology 09/18/18 17:38 Anaerobic Blood Culture - Final Blood - Venous Med Orders - Current: Current Medications Acetaminophen/Codeine Phosphate (Tylenol With Codeine No.3 300mg/30mg) 1 tab PO Q4H PRN PRN Reason: Pain Last Admin: 09/19/18 08:51 Dose: 1 tab Ondansetron HCl (Zofran) 4 mg IVPUSH Q4H PRN PRN Reason: Nausea/Vomiting Last Admin: 09/18/18 23:31 Dose: 4 mg Sodium Chloride (Saline Flush) 10 ml FLUSH ASDIRECTED PRN PRN Reason: Keep Vein Open Sodium Chloride (Saline Flush) 2.5 ml FLUSH ASDIRECTED PRN PRN Reason: Keep Vein Open Sodium Chloride (Saline Flush) 10 ml FLUSH ASDIRECTED PRN PRN Reason: Keep Vein Open Sodium Chloride (Saline Flush) 2.5 ml FLUSH ASDIRECTED PRN PRN Reason: Keep Vein Open Trazodone HCl (Trazodone) 100 mg PO BEDTIME [facility] Last Admin: 09/18/18 20:47 Dose: 100 mg Discontinued Medications Non-Formulary Medication (Acetaminophen With Codeine [Acetaminophen-Cod #4]) 1 tab PO Q4H PRN PRN Reason: Pain Trazodone HCl (Trazodone Hcl) 100 mg PO BEDTIME [facility] - Exam General: Alert, Oriented, Cooperative Lungs: Clear to Auscultation, Normal Respiratory Effort Cardiovascular: Regular Rate, Regular Rhythm - Problem List Review Problem List Initiated/Reviewed/Updated: Yes - My Orders Last 24 Hours: My Active Orders 09/18/18 11:57 Intake and Output [RC] Q12H Oxygen Therapy [RC] PRN Up With Assistance [RC] ASDIRECTED VTE/DVT Education [RC] PER UNIT ROUTINE Vital Signs [RC] Q4H Sodium Chloride 0.9% [Saline Flush] 10 ml FLUSH ASDIRECTED PRN Sodium Chloride 0.9% [Saline Flush] 2.5 ml FLUSH ASDIRECTED PRN Peripheral IV Insertion Adult [OM.PC] Routine Saline Lock Insert [OM.PC] Routine Sequential Compression Device [OM.PC] Per Unit Routine 09/18/18 11:59 Antiembolic Devices [RC] PER UNIT ROUTINE 09/18/18 12:07 Consult to Physical Therapy [PT Evaluation and Treatment] [CONS] Routine 09/18/18 15:59 Admission Status [Patient Status] [ADT] Routine 09/18/18 16:38 Blood Culture x2 Reflex Set [OM.PC] Stat 09/18/18 17:38 CULTURE BLOOD [BC] Stat 09/18/18 18:28 CULTURE BLOOD [BC] Stat - Plan Plan:: 83-year-old female being admitted secondary to weakness and falls with a recent significant history of a right shoulder glenoid fracture with joint effusion and leukocytosis. -Patient continues to be stable, no acute change in her shoulder discomfort, no febrile episodes overnight, leukocytosis is stable, shall await until Friday to have orthopedics assess patient's shoulder -Patient will be admitted and patient, physical therapy shall be consulted, assess her shoulder made for [facility] with case management. -Due to the brain bleed history per family shall hold off on Lovenox DVT prophylaxis and just do SCDs. -Continue with pain management with Tylenol 3
[2018-09-19] MEDS: Potassium Chloride 20 MEQ Tab.ER PO SCH ×2 (17:39→20:38)
[2018-09-19] MEDS: traZODone 50 MG Tab PO SCH (20:38)
[2018-09-20] MEDS: Acetaminophen/Codeine 300-30 MG Tab PO PRN ×3 (07:08→21:25)
[2018-09-20] MEDS: Potassium Chloride 20 MEQ Tab.ER PO SCH ×2 (08:45→21:26)
--- NOTE | 2018-09-20 09:31 | PCM.PN ---
- General Info Date of Service: 09/20/18 - Review of Systems Systems Review Comment:: no new complaints, reports shoulder pain improving - Patient Data Vitals - Most Recent: Last Vital Signs Temp 36.6 C 09/20/18 07:00 Pulse 78 09/20/18 07:00 Resp 16 09/20/18 07:00 BP 137/75 09/20/18 07:00 Pulse Ox 92 L 09/20/18 07:00 Weight - Most Recent: 65.7 kg I&O - Last 24 Hours: Intake & Output 09/19/18 09/20/18 09/20/18 22:59 06:59 14:59 Intake Total 780 500 Output Total 100 Balance 680 500 Lab Results Last 24 Hours: Laboratory Results - last 24 hr 09/19/18 Range/Units 06:36 Phosphorus 3.3 (2.6-4.7) mg/dL Magnesium 1.8 (1.8-2.4) mg/dL [place] Results Last 24 Hours: Microbiology 09/18/18 18:28 Aerobic Blood Culture - Preliminary Blood - Venous - Lab Draw NO GROWTH AFTER 1 DAY Anaerobic Blood Culture - Preliminary NO GROWTH AFTER 1 DAY 09/18/18 17:38 Aerobic Blood Culture - Preliminary Blood - Venous NO GROWTH AFTER 1 DAY Anaerobic Blood Culture - Final Med Orders - Current: Current Medications Acetaminophen/Codeine Phosphate (Tylenol With Codeine No.3 300mg/30mg) 1 tab PO Q4H PRN PRN Reason: Pain Last Admin: 09/20/18 07:08 Dose: 1 tab Ondansetron HCl (Zofran) 4 mg IVPUSH Q4H PRN PRN Reason: Nausea/Vomiting Last Admin: 09/18/18 23:31 Dose: 4 mg Potassium Chloride (Klor-Con M20) 40 meq PO BID [facility] Last Admin: 09/20/18 08:45 Dose: 40 meq Sodium Chloride (Saline Flush) 10 ml FLUSH ASDIRECTED PRN PRN Reason: Keep Vein Open Sodium Chloride (Saline Flush) 2.5 ml FLUSH ASDIRECTED PRN PRN Reason: Keep Vein Open Sodium Chloride (Saline Flush) 10 ml FLUSH ASDIRECTED PRN PRN Reason: Keep Vein Open Sodium Chloride (Saline Flush) 2.5 ml FLUSH ASDIRECTED PRN PRN Reason: Keep Vein Open Trazodone HCl (Trazodone) 100 mg PO BEDTIME [facility] Last Admin: 09/19/18 20:38 Dose: 100 mg Discontinued Medications Non-Formulary Medication (Acetaminophen With Codeine [Acetaminophen-Cod #4]) 1 tab PO Q4H PRN PRN Reason: Pain Trazodone HCl (Trazodone Hcl) 100 mg PO BEDTIME ALCIDES - Problem List Review Problem List Initiated/Reviewed/Updated: Yes - Plan Plan:: 83-year-old female being admitted secondary to weakness and falls with a recent significant history of a right shoulder glenoid fracture with joint effusion. Suspicion for septic arthritis is low. Will continue PT, discharge pending placement.
[2018-09-20] MEDS: traZODone 50 MG Tab PO SCH (21:25)
[2018-09-20] MEDS: Docusate Sodium 100 MG Cap PO PRN (21:25)
[2018-09-21] MEDS: Acetaminophen/Codeine 300-30 MG Tab PO PRN ×2 (08:24→15:20)
[2018-09-21] MEDS: Potassium Chloride 20 MEQ Tab.ER PO SCH ×2 (08:26→21:11)
[2018-09-21] MEDS: Hydrochlorothiazide 25 MG Tab PO SCH (10:01)
[2018-09-21] MEDS: Metoprolol Succinate 25 MG Tab.ER PO SCH (10:36)
[2018-09-21 11:27] LABS: CHLORIDE,CL 98 mmol/L (98-107); SODIUM,NA 133 mmol/L (136-145)
--- NOTE | 2018-09-21 15:05 | PCM.PN ---
- General Info Date of Service: 09/21/18 Subjective Update: Pt is stable, leukocytosis has normalized, still complaining of bilateral shoulder pain. - Patient Data Vitals - Most Recent: Last Vital Signs Temp 36.9 C 09/21/18 11:00 Pulse 68 09/21/18 11:00 Resp 17 09/21/18 11:00 BP 139/67 09/21/18 11:00 Pulse Ox 94 L 09/21/18 11:00 Weight - Most Recent: 65.7 kg I&O - Last 24 Hours: Intake & Output 09/20/18 09/21/18 09/21/18 22:59 06:59 14:59 Intake Total 840 650 130 Output Total 200 250 Balance 640 400 130 Lab Results Last 24 Hours: Laboratory Results - last 24 hr 09/21/18 09/21/18 09/21/18 Range/Units 10:46 10:46 10:46 WBC 8.33 (4.0-11.0) K/uL RBC 3.84 L (4.30-5.90) M/uL Hgb 11.3 L (12.0-16.0) g/dL Hct 34.1 L (36.0-46.0) % MCV 88.8 (80.0-98.0) fL MCH 29.4 (27.0-32.0) pg MCHC 33.1 (31.0-37.0) g/dL RDW Std Deviation 44.1 (28.0-62.0) fl RDW Coeff of [place] 14 (11.0-15.0) % Plt Count 417 H (150-400) K/uL MPV 8.90 (7.40-12.00) fL Neut % (Auto) 75.8 (48.0-80.0) % Lymph % (Auto) 14.2 L (16.0-40.0) % Dukes % (Auto) 8.4 (0.0-15.0) % Eos % (Auto) 1.2 (0.0-7.0) % Baso % (Auto) 0.4 (0.0-1.5) % Neut # (Auto) 6.3 H (1.4-5.7) K/uL Lymph # (Auto) 1.2 (0.6-2.4) K/uL Dukes # (Auto) 0.7 (0.0-0.8) K/uL Eos # (Auto) 0.1 (0.0-0.7) K/uL Baso # (Auto) 0.0 (0.0-0.1) K/uL Nucleated RBC % 0.0 /100WBC Nucleated RBCs # 0 K/uL ESR 99 H (0-29) mm/hr Sodium 133 L (136-145) mmol/L Potassium 4.9 (3.5-5.1) mmol/L Chloride 98 (98-107) mmol/L Carbon Dioxide 28.4 (21.0-32.0) mmol/L BUN 16 (7.0-18.0) mg/dL Creatinine 0.9 (0.6-1.0) mg/dL Est Cr Clr Drug Dosing 35.21 mL/min Estimated GFR (MDRD) > 60.0 ml/min Glucose 123 H (74-106) mg/dL Calcium 9.5 (8.5-10.1) mg/dL Total Bilirubin 0.3 (0.2-1.0) mg/dL AST 179 H (15-37) IU/L ALT 230 H (14-63) IU/L Alkaline Phosphatase 135 H (46-116) U/L C-Reactive Protein (0.00-0.90) mg/dL Total Protein 6.8 (6.4-8.2) g/dL Albumin 2.1 L (3.4-5.0) g/dL Globulin 4.7 H (2.6-4.0) g/dL Albumin/Globulin Ratio 0.5 L (0.9-1.6) 09/21/18 Range/Units 10:46 WBC (4.0-11.0) K/uL RBC (4.30-5.90) M/uL Hgb (12.0-16.0) g/dL Hct (36.0-46.0) % MCV (80.0-98.0) fL MCH (27.0-32.0) pg MCHC (31.0-37.0) g/dL RDW Std Deviation (28.0-62.0) fl RDW Coeff of [place] (11.0-15.0) % Plt Count (150-400) K/uL MPV (7.40-12.00) fL Neut % (Auto) (48.0-80.0) % Lymph % (Auto) (16.0-40.0) % Dukes % (Auto) (0.0-15.0) % Eos % (Auto) (0.0-7.0) % Baso % (Auto) (0.0-1.5) % Neut # (Auto) (1.4-5.7) K/uL Lymph # (Auto) (0.6-2.4) K/uL Dukes # (Auto) (0.0-0.8) K/uL Eos # (Auto) (0.0-0.7) K/uL Baso # (Auto) (0.0-0.1) K/uL Nucleated RBC % /100WBC Nucleated RBCs # K/uL ESR (0-29) mm/hr Sodium (136-145) mmol/L Potassium (3.5-5.1) mmol/L Chloride (98-107) mmol/L Carbon Dioxide (21.0-32.0) mmol/L BUN (7.0-18.0) mg/dL Creatinine (0.6-1.0) mg/dL Est Cr Clr Drug Dosing mL/min Estimated GFR (MDRD) ml/min Glucose (74-106) mg/dL Calcium (8.5-10.1) mg/dL Total Bilirubin (0.2-1.0) mg/dL AST (15-37) IU/L ALT (14-63) IU/L Alkaline Phosphatase (46-116) U/L C-Reactive Protein 22.80 H (0.00-0.90) mg/dL Total Protein (6.4-8.2) g/dL Albumin (3.4-5.0) g/dL Globulin (2.6-4.0) g/dL Albumin/Globulin Ratio (0.9-1.6) [place] Results Last 24 Hours: Microbiology 09/18/18 18:28 Aerobic Blood Culture - Preliminary Blood - Venous - Lab Draw NO GROWTH AFTER 2 DAYS Anaerobic Blood Culture - Preliminary NO GROWTH AFTER 2 DAYS 09/18/18 17:38 Aerobic Blood Culture - Preliminary Blood - Venous NO GROWTH AFTER 2 DAYS Anaerobic Blood Culture - Final Med Orders - Current: Current Medications Acetaminophen/Codeine Phosphate (Tylenol With Codeine No.3 300mg/30mg) 1 tab PO Q4H PRN PRN Reason: Pain Last Admin: 09/21/18 08:24 Dose: 1 tab Docusate Sodium (Colace) 100 mg PO DAILY PRN PRN Reason: Constipation Last Admin: 09/20/18 21:25 Dose: 100 mg Hydrochlorothiazide (Hydrochlorothiazide) 25 mg PO DAILY [facility] Last Admin: 09/21/18 10:01 Dose: 25 mg Metoprolol Succinate (Toprol Xl) 12.5 mg PO DAILY [facility] Last Admin: 09/21/18 10:36 Dose: 12.5 mg Ondansetron HCl (Zofran) 4 mg IVPUSH Q4H PRN PRN Reason: Nausea/Vomiting Last Admin: 09/18/18 23:31 Dose: 4 mg Potassium Chloride (Klor-Con M20) 40 meq PO BID [facility] Last Admin: 09/21/18 08:26 Dose: 40 meq Sodium Chloride (Saline Flush) 10 ml FLUSH ASDIRECTED PRN PRN Reason: Keep Vein Open Sodium Chloride (Saline Flush) 2.5 ml FLUSH ASDIRECTED PRN PRN Reason: Keep Vein Open Sodium Chloride (Saline Flush) 10 ml FLUSH ASDIRECTED PRN PRN Reason: Keep Vein Open Sodium Chloride (Saline Flush) 2.5 ml FLUSH ASDIRECTED PRN PRN Reason: Keep Vein Open Trazodone HCl (Trazodone) 100 mg PO BEDTIME [facility] Last Admin: 09/20/18 21:25 Dose: 100 mg Discontinued Medications Non-Formulary Medication (Acetaminophen With Codeine [Acetaminophen-Cod #4]) 1 tab PO Q4H PRN PRN Reason: Pain Trazodone HCl (Trazodone Hcl) 100 mg PO BEDTIME [facility] - Exam General: Alert, Oriented, Cooperative Lungs: Clear to Auscultation, Normal Respiratory Effort Cardiovascular: Regular Rate, Regular Rhythm Extremities: Limited Range of Motion - Problem List Review Problem List Initiated/Reviewed/Updated: Yes - My Orders Last 24 Hours: My Active Orders 09/21/18 09:45 hydroCHLOROthiazide 25 mg PO DAILY 09/21/18 10:15 Metoprolol Succinate [Toprol XL] 12.5 mg PO DAILY 09/21/18 10:25 Notify Provider Consults [RC] ASDIRECTED Consult to Physician [CONS] Routine 09/21/18 11:34 Shoulder Comp Bi [CR] Routine - Plan Plan:: 83-year-old female being admitted secondary to weakness and falls with a recent significant history of a right shoulder glenoid fracture with joint effusion. Suspicion for septic arthritis is low however shall consult Orthopedics for their recommendations prior to disposition to [facility].
--- NOTE | 2018-09-21 15:59 | PCM.CONS ---
H&P History of Present Illness - General Date of Service: 09/21/18 Admit Problem/Dx: Admission Diagnosis/Problem Admission Diagnosis/Problem Weakness Source of Information: Patient, Old Records History Limitations: Reports: No Limitations - History of Present Illness Initial Comments - Free Text/Narative: Patient is an 83 y/o female who is seen in consultation for c/o bilateral shoulder pain, R>L. She does have a h/o a fall. Previous R shoulder XR and CT show nondisplaced anterior glenoid fracture. She has been treated conservatively with sling. She states that her right shoulder pain has not increased. She does have a h/o bilateral shoulder pain. She has had previous open surgery on the left shoulder. She is very nonspecific on her pain, stating that it comes and goes. It does increase with activity. she does have a h/o fibromyalgia as well. She has had surgery on her neck in the past, but currently denies neck pain or distal paralysis/paresthesias. Currently she feels her pain is tolerable. Her main complaint is a right sided headache currently. she states she does have a h/o headaches. Quality: Reports: Dull Severity: Mild Improves with: Reports: Rest Worsens with: Reports: Movement Context: Reports: Trauma Associated Symptoms: Reports: Headaches, Weakness. Denies: Chest Pain, Cough, Fever/Chills, Nausea/Vomiting, Shortness of Breath Bilateral Arm Pain Score (Numeric/FACES): 8 Back Pain Score (Numeric/FACES): 8 - Related Data Allergies/Adverse Reactions: Allergies Allergy/AdvReac Type Severity Reaction Status Date / Time ibuprofen [From Motrin] Allergy Cannot Verified 09/17/18 22:58 Remember NSAIDS (Non-Steroidal Allergy Cannot Verified 09/17/18 22:58 Anti-Inflamma Remember Home Medications: Home Meds Acetaminophen with Codeine [Acetaminophen-Cod #4] 1 tab PO Q4H PRN 09/10/18 [ History] Cyclobenzaprine [Flexeril] 5 mg PO TID PRN 09/10/18 [History] Gabapentin [Neurontin] 600 mg PO TID 09/10/18 [History] Levothyroxine [Levothroid] 137 mcg PO DAILY 09/10/18 [History] hydroCHLOROthiazide [Hydrochlorothiazide] 25 mg PO DAILY 09/10/18 [History] traZODone HCl [Trazodone HCl] 100 mg PO BEDTIME 09/10/18 [History] Metoprolol Succinate [Toprol XL] 12.5 mg PO DAILY #15 tab.er 09/15/18 [Rx] Past Medical History Cardiovascular History: Reports: Arrhythmia, Hypertension Respiratory History: Reports: None Gastrointestinal History: Reports: None Genitourinary History: Reports: UTI, Recurrent [employer] History: Reports: Musculoskeletal History: Reports: Back Pain, Chronic, Fibromyalgia, Other (See Below) Other Musculoskeletal History: Weakness Neurological History: Reports: Other (See Below) Other Neuro History: head bleed 09/02/18 Endocrine/Metabolic History: Reports: Hypothyroidism Oncologic (Cancer) History: Reports: Other (See Below) Other Oncologic History: Kidney - Infectious Disease History Infectious Disease History: Reports: Chicken Pox, Measles, Mumps - Past Surgical History GI Surgical History: Reports: Appendectomy Female Surgical History: Reports: Hysterectomy Neurological Surgical History: Reports: Lumbar Spine, Thoracic Spine Musculoskeletal Surgical History: Reports: Knee Replacement Social & Family History - Family History Family Medical History: Noncontributory - Tobacco Use Smoking Status *Q: Never Smoker - Caffeine Use Caffeine Use: Reports: None - Recreational Drug Use Recreational Drug Use: No - Living Situation & Occupation Living situation: Reports: with Family Occupation: Retired H&P Review of Systems - Review of Systems: Review Of Systems: See Below General: Reports: No Symptoms, Weakness. Denies: Fever, Chills HEENT: Reports: No Symptoms Pulmonary: Reports: No Symptoms Cardiovascular: Reports: No Symptoms Gastrointestinal: Reports: No Symptoms Genitourinary: Reports: No Symptoms Skin: Reports: No Symptoms Psychiatric: Reports: No Symptoms Neurological: Reports: Headache Hematologic/Lymphatic: Reports: No Symptoms Immunologic: Reports: No Symptoms Exam - Exam Exam: See Below - Vital Signs Vital Signs: Last Vital Signs Temp 98.5 F 09/21/18 11:00 Pulse 68 09/21/18 11:00 Resp 17 09/21/18 11:00 BP 139/67 09/21/18 11:00 Pulse Ox 94 L 09/21/18 11:00 Weight: 65.7 kg - Exam General: Alert, Oriented, 4 HEENT: Conjunctiva Clear, Hearing Intact, Nares Patent Neck: Supple, Trachea Midline, 2 Lungs: Normal Respiratory Effort Cardiovascular: Regular Rate GI/Abdominal Exam: Soft Neuro Extensive - Mental Status: Alert, Oriented x3, Normal Mood/Affect, Normal Cognition Psychiatric: Alert, Normal Affect, Normal Mood Physical Exam Comments:: Exam of bilateral shoulders shows well healed anterior incision scar on left shoulder. No scars or deformity on right. No palpable tenderness bilaterally. ROM limited to ~90 forward flexion bilaterally, minimal rotation with + crepitus. States she does not usually have more motion than this. FROm at elbows. AIN/PIN/uln motor intact bilaterally. Rad/uln/med sensation intact bilaterally. Rad pulse 2+. - Patient Data Lab Results Last 24 hrs: Laboratory Results - last 24 hr 09/21/18 09/21/18 09/21/18 Range/Units 10:46 10:46 10:46 WBC 8.33 (4.0-11.0) K/uL RBC 3.84 L (4.30-5.90) M/uL Hgb 11.3 L (12.0-16.0) g/dL Hct 34.1 L (36.0-46.0) % MCV 88.8 (80.0-98.0) fL MCH 29.4 (27.0-32.0) pg MCHC 33.1 (31.0-37.0) g/dL RDW Std Deviation 44.1 (28.0-62.0) fl RDW Coeff of [place] 14 (11.0-15.0) % Plt Count 417 H (150-400) K/uL MPV 8.90 (7.40-12.00) fL Neut % (Auto) 75.8 (48.0-80.0) % Lymph % (Auto) 14.2 L (16.0-40.0) % [place] % (Auto) 8.4 (0.0-15.0) % Eos % (Auto) 1.2 (0.0-7.0) % Baso % (Auto) 0.4 (0.0-1.5) % Neut # (Auto) 6.3 H (1.4-5.7) K/uL Lymph # (Auto) 1.2 (0.6-2.4) K/uL [place] # (Auto) 0.7 (0.0-0.8) K/uL Eos # (Auto) 0.1 (0.0-0.7) K/uL Baso # (Auto) 0.0 (0.0-0.1) K/uL Nucleated RBC % 0.0 /100WBC Nucleated RBCs # 0 K/uL ESR 99 H (0-29) mm/hr Sodium 133 L (136-145) mmol/L Potassium 4.9 (3.5-5.1) mmol/L Chloride 98 (98-107) mmol/L Carbon Dioxide 28.4 (21.0-32.0) mmol/L BUN 16 (7.0-18.0) mg/dL Creatinine 0.9 (0.6-1.0) mg/dL Est Cr Clr Drug Dosing 35.21 mL/min Estimated GFR (MDRD) > 60.0 ml/min Glucose 123 H (74-106) mg/dL Calcium 9.5 (8.5-10.1) mg/dL Total Bilirubin 0.3 (0.2-1.0) mg/dL AST 179 H (15-37) IU/L ALT 230 H (14-63) IU/L Alkaline Phosphatase 135 H (46-116) U/L C-Reactive Protein (0.00-0.90) mg/dL Total Protein 6.8 (6.4-8.2) g/dL Albumin 2.1 L (3.4-5.0) g/dL Globulin 4.7 H (2.6-4.0) g/dL Albumin/Globulin Ratio 0.5 L (0.9-1.6) 09/21/18 Range/Units 10:46 WBC (4.0-11.0) K/uL RBC (4.30-5.90) M/uL Hgb (12.0-16.0) g/dL Hct (36.0-46.0) % MCV (80.0-98.0) fL MCH (27.0-32.0) pg MCHC (31.0-37.0) g/dL RDW Std Deviation (28.0-62.0) fl RDW Coeff of [place] (11.0-15.0) % Plt Count (150-400) K/uL MPV (7.40-12.00) fL Neut % (Auto) (48.0-80.0) % Lymph % (Auto) (16.0-40.0) % [place] % (Auto) (0.0-15.0) % Eos % (Auto) (0.0-7.0) % Baso % (Auto) (0.0-1.5) % Neut # (Auto) (1.4-5.7) K/uL Lymph # (Auto) (0.6-2.4) K/uL [place] # (Auto) (0.0-0.8) K/uL Eos # (Auto) (0.0-0.7) K/uL Baso # (Auto) (0.0-0.1) K/uL Nucleated RBC % /100WBC Nucleated RBCs # K/uL ESR (0-29) mm/hr Sodium (136-145) mmol/L Potassium (3.5-5.1) mmol/L Chloride (98-107) mmol/L Carbon Dioxide (21.0-32.0) mmol/L BUN (7.0-18.0) mg/dL Creatinine (0.6-1.0) mg/dL Est Cr Clr Drug Dosing mL/min Estimated GFR (MDRD) ml/min Glucose (74-106) mg/dL Calcium (8.5-10.1) mg/dL Total Bilirubin (0.2-1.0) mg/dL AST (15-37) IU/L ALT (14-63) IU/L Alkaline Phosphatase (46-116) U/L C-Reactive Protein 22.80 H (0.00-0.90) mg/dL Total Protein (6.4-8.2) g/dL Albumin (3.4-5.0) g/dL Globulin (2.6-4.0) g/dL Albumin/Globulin Ratio (0.9-1.6) Result Diagrams: 09/21/18 10:46 09/21/18 10:46 [place] Results Last 24 hrs: Microbiology 09/18/18 18:28 Aerobic Blood Culture - Preliminary Blood - Venous - Lab Draw NO GROWTH AFTER 2 DAYS Anaerobic Blood Culture - Preliminary NO GROWTH AFTER 2 DAYS 09/18/18 17:38 Aerobic Blood Culture - Preliminary Blood - Venous NO GROWTH AFTER 2 DAYS Anaerobic Blood Culture - Final Imaging Impressions Last 24 hrs: XR of bilateral shoulders reviewed. Show severe RTC arthropathy bilaterally. No acute findings noted. Previous shoulder CT shows nondisplaced anterior glenoid fracture with joint effusion and degenerative changes. Consult PN Assessment/Plan Procedures: Procedures ACUTE HEPATITIS PANEL (09/12/18) ASSAY OF MAGNESIUM (09/12/18) ASSAY OF PHOSPHORUS (09/12/18) ASSAY OF TROPONIN QUANT (09/12/18) ASSAY THYROID STIM HORMONE (09/12/18) BLOOD CULTURE FOR BACTERIA (09/12/18) COMPLETE CBC W/AUTO DIFF WBC (09/12/18) COMPREHEN METABOLIC PANEL (09/12/18) CT HEAD/BRAIN W/O DYE (09/12/18) CT UPPER EXTREMITY W/O DYE (09/12/18) ECHO EXAM OF ABDOMEN (09/12/18) ELECTROCARDIOGRAM TRACING (09/12/18) EMERGENCY DEPT VISIT (09/12/18) HYDRATE IV INFUSION ADD-ON (09/12/18) INFLUENZA ASSAY W/OPTIC (09/12/18) METABOLIC PANEL TOTAL CA (09/12/18) OT EVAL LOW COMPLEX 30 MIN (09/12/18) PT EVAL MOD COMPLEX 30 MIN (09/12/18) ROUTINE VENIPUNCTURE (09/12/18) THER/PROPH/DIAG IV INF INIT (09/12/18) THERAPEUTIC ACTIVITIES (09/12/18) THERAPEUTIC EXERCISES (09/12/18) TX/PRO/DX INJ NEW DRUG ADDON (09/12/18) URINALYSIS AUTO W/O SCOPE (09/12/18) URINE CULTURE/COLONY COUNT (09/12/18) X-RAY EXAM CHEST 1 VIEW (09/12/18) X-RAY EXAM L-S SPINE 2/3 VWS (09/12/18) X-RAY EXAM OF SHOULDER (09/12/18) (1) Rotator cuff arthropathy of both shoulders SNOMED Code(s): 64993479417864965 Code(s): M12.811 - OTH SPECIFIC ARTHROPATHIES, NEC, RIGHT SHOULDER; M12.812 - OTH SPECIFIC ARTHROPATHIES, NEC, LEFT SHOULDER Current Visit: Yes Problem List Initiated/Reviewed/Updated: Yes Plan: Patient's complaints of shoulder pain are not more severe than her usual day to day shoulder pain. She does have a painfree arc of motion bilaterally from 0-90 degrees. Her WBC count has normalized, however CRP and ESR have elevated. I do not think that septic arthritis is the cause of her shoulder pain. BC in past have been negative. At this time I would recommend continued observation for her shoulder pain. She may continue with the sling prn for her right shoulder pain. Recommend NWB RUE until follow up. Will sign off at this time. Please reconsult if patient continues to be symptomatic. Thank you.
--- NOTE | 2018-09-21 17:03 | CR ---
EXAMINATION: Left shoulder HISTORY: Pain COMPARISON: None TECHNIQUE: 2 views FINDINGS/IMPRESSION: The left shoulder is high riding with erosion and sclerosis changes noted within the acromion suggesting chronic rotator cuff arthropathy. 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 There is no fracture or acute osseous abnormality.
[2018-09-21] MEDS: traZODone 50 MG Tab PO SCH (21:11)
[2018-09-22] MEDS: Metoprolol Succinate 25 MG Tab.ER PO SCH (10:06)
[2018-09-22] MEDS: Docusate Sodium 100 MG Cap PO PRN (10:08)
[2018-09-22] MEDS: Hydrochlorothiazide 25 MG Tab PO SCH (10:09)
[2018-09-22] MEDS: Acetaminophen/Codeine 300-30 MG Tab PO PRN (10:22)
--- NOTE | 2018-09-22 20:01 | PCM.DCSUM1 ---
Discharge Summary - Hospital Course Diagnosis: Stroke: No Modified Beauregard Scale: No Symptoms at All Modified Beauregard Scale Score: 0 - Discharge Data Discharge Disposition: DC/Tfer to [facility] Condition: Fair - Patient Summary/Data Consults: Consultations 09/18/18 12:07 Consult to Physical Therapy [PT Evaluation and Treatment] [CONS] Routine 09/21/18 10:25 Consult to Physician [CONS] Routine - Patient Instructions Diet: Regular Diet as Tolerated Activity: As Tolerated Driving: Do Not Drive Showering/Bathing: May Shower Notify Provider of: Fever, Increased Pain, Swelling and Redness, Drainage, Nausea and/or Vomiting - Discharge Plan Prescriptions/Med Rec: Acetaminophen with Codeine [Acetaminophen-Cod #4] 1 tab PO Q4H PRN 7 Days #42 tablet PRN Reason: Pain Cyclobenzaprine [Flexeril] 5 mg PO TID PRN 7 Days #21 tablet PRN Reason: Muscle Spasm Gabapentin [Neurontin] 600 mg PO TID 7 Days #21 tablet hydroCHLOROthiazide [Hydrochlorothiazide] 25 mg PO DAILY 30 Days #30 tablet Levothyroxine [Levothroid] 137 mcg PO DAILY 30 Days #30 tablet Metoprolol Succinate [Toprol XL] 12.5 mg PO DAILY 30 Days #15 tab.er traZODone HCl [Trazodone HCl] 100 mg PO BEDTIME 30 Days #30 tablet Home Medications: Home Meds Acetaminophen with Codeine [Acetaminophen-Cod #4] 1 tab PO Q4H PRN 7 Days #42 tablet 09/22/18 [Rx] Cyclobenzaprine [Flexeril] 5 mg PO TID PRN 7 Days #21 tablet 09/22/18 [Rx] Gabapentin [Neurontin] 600 mg PO TID 7 Days #21 tablet 09/22/18 [Rx] Levothyroxine [Levothroid] 137 mcg PO DAILY 30 Days #30 tablet 09/22/18 [Rx] Metoprolol Succinate [Toprol XL] 12.5 mg PO DAILY 30 Days #15 tab.er 09/22/18 [ Rx] hydroCHLOROthiazide [Hydrochlorothiazide] 25 mg PO DAILY 30 Days #30 tablet [Rx] traZODone HCl [Trazodone HCl] 100 mg PO BEDTIME 30 Days #30 tablet 09/22/18 [Rx] Patient Handouts: Trazodone tablets, Cyclobenzaprine tablets, Levothyroxine tablets, Metoprolol extended-release tablets, Gabapentin capsules or tablets, Hydrochlorothiazide, HCTZ; Lisinopril tablets, Acetaminophen; Codeine tablets Referrals: Carlito Steel MD [Physician] - (Will be seen on next [facility] rounds ) - Patient Data Vitals - Most Recent: Last Vital Signs Temp 36.4 C 09/22/18 12:00 Pulse 79 09/22/18 12:00 Resp 16 09/22/18 12:00 BP 118/72 09/22/18 12:00 Pulse Ox 96 09/22/18 12:00 Weight - Most Recent: 65.7 kg I&O - Last 24 hours: Intake & Output 09/22/18 09/22/18 09/22/18 06:59 14:59 22:59 Intake Total 500 Balance 500 LYNDA Results - Last 24 hrs: Microbiology 09/18/18 18:28 Aerobic Blood Culture - Preliminary Blood - Venous - Lab Draw NO GROWTH AFTER 4 DAYS Anaerobic Blood Culture - Preliminary NO GROWTH AFTER 4 DAYS 09/18/18 17:38 Aerobic Blood Culture - Preliminary Blood - Venous NO GROWTH AFTER 4 DAYS Anaerobic Blood Culture - Final Med Orders - Current: Current Medications Discontinued Medications Acetaminophen/Codeine Phosphate (Tylenol With Codeine No.3 300mg/30mg) 1 tab PO Q4H PRN PRN Reason: Pain Last Admin: 09/22/18 10:22 Dose: 1 tab Docusate Sodium (Colace) 100 mg PO DAILY PRN PRN Reason: Constipation Last Admin: 09/22/18 10:08 Dose: 100 mg Hydrochlorothiazide (Hydrochlorothiazide) 25 mg PO DAILY [facility] Last Admin: 09/22/18 10:09 Dose: 25 mg Metoprolol Succinate (Toprol Xl) 12.5 mg PO DAILY [facility] Last Admin: 09/22/18 10:06 Dose: 12.5 mg Non-Formulary Medication (Acetaminophen With Codeine [Acetaminophen-Cod #4]) 1 tab PO Q4H PRN PRN Reason: Pain Ondansetron HCl (Zofran) 4 mg IVPUSH Q4H PRN PRN Reason: Nausea/Vomiting Last Admin: 09/18/18 23:31 Dose: 4 mg Potassium Chloride (Klor-Con M20) 40 meq PO BID [facility] Last Admin: 09/21/18 21:11 Dose: 40 meq Sodium Chloride (Saline Flush) 10 ml FLUSH ASDIRECTED PRN PRN Reason: Keep Vein Open Sodium Chloride (Saline Flush) 2.5 ml FLUSH ASDIRECTED PRN PRN Reason: Keep Vein Open Sodium Chloride (Saline Flush) 10 ml FLUSH ASDIRECTED PRN PRN Reason: Keep Vein Open Sodium Chloride (Saline Flush) 2.5 ml FLUSH ASDIRECTED PRN PRN Reason: Keep Vein Open Trazodone HCl (Trazodone Hcl) 100 mg PO BEDTIME [facility] Trazodone HCl (Trazodone) 100 mg PO BEDTIME [facility] Last Admin: 09/21/18 21:11 Dose: 100 mg
== END 2018-09-22 13:00 | DRG 948 ==
LOC: MW.ED 22:48 → MW.MS 23:33 → OBSVTOIN 09-18 15:59 → MW.MS 09-18 21:16
PROVIDERS: ADMIT Internal Medicine; ATTEND Internal Medicine
DX: R53.1 Weakness (principal); R29.6 Repeated falls; I10 Essential (primary) hypertension; I49.9 Cardiac arrhythmia, unspecified; M12.811 Other specific arthropathies, not elsewhere classified, right shoulder; M12.812 Other specific arthropathies, not elsewhere classified, left shoulder; D72.829 Elevated white blood cell count, unspecified; M54.9 Dorsalgia, unspecified; G89.29 Other chronic pain; M79.7 Fibromyalgia; E03.9 Hypothyroidism, unspecified; Z85.528 Personal history of other malignant neoplasm of kidney; Z90.710 Acquired absence of both cervix and uterus; Z79.899 Other long term (current) drug therapy; Z87.440 Personal history of urinary (tract) infections; Z88.8 Allergy status to other drugs, medicaments and biological substances; Z96.659 Presence of unspecified artificial knee joint
CPT/HCPCS: 36415 ×2; 70450; 71045; 72170; 80048; 80053; 81003; 83605; 84484; 85025 ×2; 85610; 85652; 86140; 93005; 97161; 99285; A9270; 73030-26-LT; 73030-LT; 83735; 84100; 87040; 97530-GP; G0378; J2405

== ENCOUNTER 2022-12-13 03:18 | Emergency (ER) | payer MEDICARE ==
[2022-12-13] MEDS ORDERED: Lidocaine 1% with EPINEPHrine 1:100,000 10 ML MDV INJECT ONE (03:32)
[2022-12-13] MEDS ORDERED: Lidocaine 1% with EPINEPHrine 1:100,000 20 ML MDV ONE (03:35)
[2022-12-13] MEDS ORDERED: Lidocaine 1% with EPINEPHrine 1:100,000 20 ML MDV INJECT ONE (03:36)
[2022-12-13] MEDS ORDERED: Octyl 2-Cyanoacrylate 1 g/1 mL 1 APPLIC PEN ONE (04:14)
[2022-12-13] MEDS ORDERED: Octyl 2-Cyanoacrylate 1 g/1 mL 1 APPLIC PEN TOP ONE (04:15)
== END 2022-12-13 06:00 | disposition home or self-care (01) ==
LOC: MW.ED 03:18
DX: S01.81XA Laceration without foreign body of other part of head, initial encounter (principal); I10 Essential (primary) hypertension; E03.9 Hypothyroidism, unspecified; Z88.6 Allergy status to analgesic agent; Z79.899 Other long term (current) drug therapy; W18.30XA Fall on same level, unspecified, initial encounter
CPT/HCPCS: 12054; 70450; 72125; 99283; A9270; 13132; 13133; J3490

== ENCOUNTER 2025-05-17 06:52 | Emergency (ER) | payer BC, MEDICARE | END 2025-05-17 11:57 | disposition home or self-care (01) | LOC: MW.ED 06:52 | DX: H60.312 Diffuse otitis externa, left ear (principal); I10 Essential (primary) hypertension; E03.9 Hypothyroidism, unspecified; Z88.8 Allergy status to other drugs, medicaments and biological substances; Z79.890 Hormone replacement therapy; Z79.899 Other long term (current) drug therapy; Z90.49 Acquired absence of other specified parts of digestive tract; Z90.710 Acquired absence of both cervix and uterus | CPT/HCPCS: 70450; 70450-26; 70480; 70480-26; 99283 ==